=== PATIENT | male | born 1950 | race Caucasian/White ===

== ENCOUNTER 2023-01-11 08:44 | Outpatient (CLI) | payer MEDICARE, SELFPAY ==
[2023-01-11 07:50] LABS: Abs Immature Grans 0.04 10^3/uL (0.0-0.06); Absolute Basophil Count 0.07 10^3/uL (0.0-0.2); Absolute Eosinophil Count 0.44 10^3/uL (0.0-0.7); Absolute Lymphocyte Count 1.03 10^3/uL (1.2-3.4); Absolute Monocyte Count 0.63 10^3/uL (0.1-0.8); Absolute Neutrophil Count 6.34 10^3/uL (1.2-6.7); Basophils % 0.8; Eosinophils % 5.1; HCT 46.3 % (40.0-50.0); HGB 15.1 g/dL (13.5-17.5); Immature Grans % 0.5; MCH 30.1 pg (27.0-33.0); MCHC 32.6 % (32.0-36.0); MCV 92 fL (80-95); MPV 8.9 fL (8.0-11.0); Monocytes % 7.4; Neutrophils % 74.2; Platelet Count 235 10^3/uL (130-400); RBC 5.01 10^6/uL (4.36-5.78); RDW 13.4 % (11.8-14.1); RDW-SD 45.1 fL; WBC 8.55 10^3/uL (4.4-10.8)
[2023-01-11 08:13] LABS: ALT 40 U/L (16-63); AST 27 U/L (15-37); Albumin 4.1 g/dL (3.4-5.0); Alkaline Phosphatase 84 U/L (46-116); Anion Gap 7.6 mmol/L (3-11); BUN 19 mg/dL (7-18); Bilirubin, Total 0.4 mg/dL (0.2-1.0); CO2 30.4 mmol/L (21.0-32.0); CREATININE 1.2 mg/dL (0.70-1.30); Calcium 9.2 mg/dL (8.5-10.1); Chloride 105 mmol/L (98-107); Estimated GFR 65.06 (mL/min/1.73m2); FREE T4 1.02 ng/dL (0.76-1.46); Glucose 139 mg/dL (74-106); Magnesium 2.3 mg/dL (1.8-2.4); Potassium 4.1 mmol/L (3.5-5.1); Sodium 143 mmol/L (136-145); TSH 3.55 uIU/mL (0.36-3.74); Total Protein 8.2 g/dL (6.4-8.2)
== END 2023-01-11 08:45 | disposition home or self-care (01) ==
PROVIDERS: PCP Nurse Practitioner Family; Visit Provider Internal Medicine Medical Oncology
DX: Z79.899 Other long term (current) drug therapy (principal); J91.0 Malignant pleural effusion
CPT/HCPCS: 36415; 80053; 83735; 84439; 84443; 85025

== ENCOUNTER 2023-01-20 10:56 | Emergency (ER) | payer MEDICARE, SELFPAY ==
[2023-01-20] VITALS (20 sets, daily range): BP systolic 104–164; BP diastolic 59–75; PULSE 68–85; RESP 16–29; TEMP 37.2–37.3; O2SAT 94–99
--- NOTE | 2023-01-20 11:45 | RT.EKG_ITS ---
APPROVED REPORT Exam: Resting ECG Reason for Exam: ever reynakylie Patient Location: E HR:79 bpm ECG Measurements Heart Rate 79 AXIS AK 98 P 203 QRSd 104 QRS 69 QT 386 T 75 QTc 444 Conclusion Sinus or ectopic atrial rhythm...P axis (-45,135)
--- NOTE | 2023-01-20 12:00 | DI.RAD_ITS ---
Exam(s) XR PORTABLE CHEST AP EXAM: XR PORTABLE CHEST AP CLINICAL HISTORY: sob, chills TECHNIQUE: 2D digital imaging was performed of the chest. One image was obtained. An AP view was ob tained. COMPARISON: No exams were available for comparison FINDINGS: MEDIASTINUM: Normal. HEART: Normal. PULMONARY VASCULATURE: Normal. LUNGS: There is a 1.2 cm nodule in the right mid lung. There does appear to be some thickening along the wall of the right hemithorax and blunting of the right costophrenic angle suggesting a small ple ural effusion. No focal consolidating infiltrates are seen. There is some haziness in the right hem ithorax. The left lung appears clear. PLEURAL SPACE: No pneumothorax. No left pleural effusion. BONE:Within normal limits for the patient's age. Spinal curvature is present. OTHER FINDINGS:Normal. IMPRESSION: 1. Findings suspicious for small right pleural effusion. Increased haziness of the right lung and a infiltrate cannot be excluded. 2. 1.2 cm nodule in the right mid lung. CT scan of the chest should be considered in this patient fo r follow-up of the nodule. DATA REPOSITORY: RADIATION DOSE DELIVERED:
--- NOTE | 2023-01-20 12:17 | ED.GENADUL_ITS ---
Discharge Plan Disposition Patient Disposition: Home Condition: Stable Discharge Details Clinical Impression: Pneumonia, Lung cancer Primary Care Provider: Akila Grande ED Provider: Casper Vieyra Home Meds and New Rx's Prescriptions: New amoxicillin 875 mg tablet 875 mg PO BID Qty: 14 0RF Continued clonazepam 0.5 mg tablet 0.5 mg PO 2XD Patient Comments: 0.5 mg orally 3 times per day As Needed for anxiety for 30 days prochlorperazine maleate 10 mg tablet 10 mg PO 1XD pantoprazole 40 mg tablet,delayed release (DR/EC) 40 mg PO 1XD Patient Comments: TAKE ONE TABLET BY MOUTH ONCE DAILY levothyroxine 125 mcg tablet 125 mcg PO 1XD Patient Comments: TAKE ONE TABLET BY MOUTH ONCE DAILY diclofenac sodium 75 mg tablet,delayed release (DR/EC) 75 mg PO 2XD Patient Comments: TAKE ONE TABLET BY MOUTH TWICE A DAY NEEDED FOR PAIN lisinopril 40 mg tablet 40 mg PO 1XD tadalafil 5 mg tablet 5 mg PO 1XD Patient Comments: TAKE ONE TABLET BY MOUTH ONCE DAILY for sexual activity Discharge Instructions Instructions: Pneumonia (ED) Discharge Data Discharge Date/Time-TO BE ENTERED AT DEPARTURE: 01/20/23 18:04 Medical Decision Making 72-year-old male with history of stage IV lung adenocarcinoma, on chemotherapy, here with shortness of breath with associated chills over the past 3 days. Shortness of breath worse with exertion and when lying flat. Patient saturating in the upper 80s to low 90s on room air, drops with any exertion. EKG was reviewed and interpreted by me: Please see report, sinus 79 bpm. No STEMI, nondiagnostic. Consider ACS and CHF. I will send troponin and BNP. Chest x-ray was reviewed and interpreted by radiology: 1. Findings suspicious for small right pleural effusion.? Increased haziness of the right lung and a infiltrate cannot be excluded. 2. 1.2 cm nodule in the right mid lung.? CT scan of the chest should be considered in this patient for follow-up of the nodule.? Consider acute life-threatening pulmonary embolism. D-dimer elevated. Plan to obtain CT of the chest. -- CT of the chest was interpreted by radiology: 1. No evidence of pulmonary embolism, thoracic aortic dissection or aneurysm.? 2. There is a small infiltrate in the right lung base which may represent atelectasis or possible pneumonia. 3. There is diffuse pleural thickening in the right hemithorax suspicious for neoplasm or metastatic disease. Patient reassessed and stable. Patient requesting home O2 for symptomatic relief when laying flat. I consulted respiratory therapy who noted this could not be provided. I will refer him to follow-up with his primary care physician who hopefully can arrange for this. While no definitive pneumonia visualized on CT, I am concerned about potential early pneumonia not clearly visualized and superimposed on malignancy given his recent chills. I will initiate course of Augmentin 875 mg twice daily x7 days. I encouraged him to return to the emerge [place] immediately for any worsening or new concerning symptoms. Lab Data Lab results reviewed: Yes I reviewed the patient's lab results. Labs: 01/20/23 13:05 Blood Blood Culture - Pending 01/20/23 13:00 Blood Blood Culture - Pending Laboratory Tests Range/Units 01/20/23 01/20/23 01/20/23 12:12 12:12 12:12 WBC (4.4-10.8) 10^3/uL 6.95 RBC (4.36-5.78) 10^6/uL 4.55 Hgb (13.5-17.5) g/dL 14.4 Hct (40.0-50.0) % 41.1 MCV (80-95) fL 90 MCH (27.0-33.0) pg 31.6 MCHC (32.0-36.0) % 35.0 RDW (11.8-14.1) % 13.2 Plt Count (130-400) 10^3/uL 148 MPV (8.0-11.0) fL 9.4 Immature Gran % 1.3 Neutrophils % 71.6 Lymphocytes % 8.9 Monocytes % 14.8 Eosinophils % 2.7 Basophils % 0.7 Nucleated RBC % (0.0-0.3) % 0.0 Absolute Neutrophils (1.2-6.7) 10^3/uL 4.97 Absolute Lymphocytes (1.2-3.4) 10^3/uL 0.62 L Absolute Monocytes (0.1-0.8) 10^3/uL 1.03 H Absolute Eosinophils (0.0-0.7) 10^3/uL 0.19 Absolute Basophils (0.0-0.2) 10^3/uL 0.05 D-Dimer (<500) ng/mlFEU 2243 H VBG Lactate (0.6-1.4) mmol/L Sodium (136-145) mmol/L 134 L Potassium (3.5-5.1) mmol/L 4.0 Chloride (98-107) mmol/L 97 L Carbon Dioxide (21.0-32.0) mmol/L 27.5 Anion Gap (3-11) mmol/L 9.5 BUN (7-18) mg/dL 19 H Creatinine (0.70-1.30) mg/dL 1.3 Est GFR (CKD-EPI 2020) (mL/min/1.73m2) 59.10 Glucose (74-106) mg/dL 104 Calcium (8.5-10.1) mg/dL 8.7 Total Bilirubin (0.2-1.0) mg/dL 0.9 AST (15-37) U/L 23 ALT (16-63) U/L 42 Alkaline Phosphatase (46-116) U/L 69 Troponin I (<or=60) ng/L < 50 NT-Pro-B Natriuret Pep (<300) pg/mL 133 Total Protein (6.4-8.2) g/dL 7.7 Albumin (3.4-5.0) g/dL 3.6 COVID-19 Source Range/Units 01/20/23 01/20/23 12:12 14:16 WBC (4.4-10.8) 10^3/uL RBC (4.36-5.78) 10^6/uL Hgb (13.5-17.5) g/dL Hct (40.0-50.0) % MCV (80-95) fL MCH (27.0-33.0) pg MCHC (32.0-36.0) % RDW (11.8-14.1) % Plt Count (130-400) 10^3/uL MPV (8.0-11.0) fL Immature Gran % Neutrophils % Lymphocytes % Monocytes % Eosinophils % Basophils % Nucleated RBC % (0.0-0.3) % Absolute Neutrophils (1.2-6.7) 10^3/uL Absolute Lymphocytes (1.2-3.4) 10^3/uL Absolute Monocytes (0.1-0.8) 10^3/uL Absolute Eosinophils (0.0-0.7) 10^3/uL Absolute Basophils (0.0-0.2) 10^3/uL D-Dimer (<500) ng/mlFEU VBG Lactate (0.6-1.4) mmol/L 0.9 Sodium (136-145) mmol/L Potassium (3.5-5.1) mmol/L Chloride (98-107) mmol/L Carbon Dioxide (21.0-32.0) mmol/L Anion Gap (3-11) mmol/L BUN (7-18) mg/dL Creatinine (0.70-1.30) mg/dL Est GFR (CKD-EPI 2020) (mL/min/1.73m2) Glucose (74-106) mg/dL Calcium (8.5-10.1) mg/dL Total Bilirubin (0.2-1.0) mg/dL AST (15-37) U/L ALT (16-63) U/L Alkaline Phosphatase (46-116) U/L Troponin I (<or=60) ng/L NT-Pro-B Natriuret Pep (<300) pg/mL Total Protein (6.4-8.2) g/dL Albumin (3.4-5.0) g/dL COVID-19 Source Nasal/Nares HPI General Mode of arrival: ambulatory . Date/Time Provider Initiated Documentation: 01/20/23 11:30 . Limitations to Documentation: no limitations . Information obtained by: patient . HPI Narrative: 72-year-old male with history of stage IV lung adenocarcinoma, on chemotherapy, here with chief complaint of shortness of breath with associated chills over the past 3 days. Shortness of breath worse with exertion and when lying flat. He has no associated chest pain. Related Data Home Medications Medication Instructions Recorded Confirmed amoxicillin 875 mg tablet 875 mg PO BID #14 tabs 01/20/23 clonazepam 0.5 mg tablet 0.5 mg PO 2XD 01/20/23 01/20/23 diclofenac sodium 75 mg 75 mg PO 2XD 01/20/23 01/20/23 tablet,delayed release levothyroxine 125 mcg tablet 125 mcg PO 1XD 01/20/23 01/20/23 lisinopril 40 mg tablet 40 mg PO 1XD 01/20/23 01/20/23 pantoprazole 40 mg tablet,delayed 40 mg PO 1XD 01/20/23 01/20/23 release prochlorperazine maleate 10 mg 10 mg PO 1XD 01/20/23 01/20/23 tablet tadalafil 5 mg tablet 5 mg PO 1XD 01/20/23 01/20/23 Previous Rx's Medication Instructions Recorded amoxicillin 875 mg tablet 875 mg PO BID #14 tabs 01/20/23 Allergies Allergy/AdvReac Type Severity Reaction Status Date / Time codeine Allergy Other (See Unverified 01/20/23 11:24 Comment) morphine Allergy Other (See Unverified 01/20/23 11:23 Comment) ALL narcotics Allergy Other (See Uncoded 01/20/23 11:25 Comment) General Stated Complaint: SOB LILLIAM: 3 Review of Systems All systems reviewed & are unremarkable except as noted in HPI and below Constitutional Constitutional: Denies fever(s) Respiratory Respiratory: Reports as per HPI PFSH All Active Problems (Updated 01/20/23 @ 17:38 by Casper Vieyra MD) Pneumonia (Acute) Lung cancer (Chronic) Social History Smoking/Tobacco Use Status: Current-Occasional Tobacco Type: cigarettes Tobacco: How many years used: 15 Smoking risk assessment performed?: Yes Alcohol Intake: never Do you feel safe at home: Yes Do you feel safe in your relationship?: Yes Exam Const General: cooperative and no acute distress HENMT Mouth: moist mucous membranes Eyes Conjunctivae: normal conjunctivae Sclera: normal sclerae Neck Neck: trachea midline Resp Auscultation: clear to auscultation bilaterally, no rales, no rhonchi and no wheezes Cardio Rate: regular rate and not tachycardic Rhythm: regular rhythm GI Palpation: soft, not firm, no guarding, no masses, not rigid and nontender Skin General skin exam: no rashes or lesions noted Neuro General: patient alert, patient awake, patient oriented x3 and tone normal Extrem General: no calf tenderness and no edema Psych Appearance: grossly normal Mental Status: mental status grossly normal Course Vital Signs Vital signs: Vital Signs Temperature 37.3 C 01/20/23 11:17 Pulse 82 01/20/23 11:17 Respiratory Rate 16 01/20/23 11:17 Blood Pressure 132/72 01/20/23 11:17 Pulse Oximetry 94 01/20/23 11:17 Temperature 37.3 C 01/20/23 11:17 Temperature Source Oral 01/20/23 11:17 Pulse 82 01/20/23 11:17 Respiratory Rate 20 01/20/23 11:50 Respiratory Effort Normal 01/20/23 11:50 Respiratory Depth Normal 01/20/23 11:50 Respiratory Pattern Normal 01/20/23 11:50 Blood Pressure 132/72 01/20/23 11:17 Blood Pressure Position Sitting 01/20/23 11:17 Pulse Oximetry 94 01/20/23 11:17 Oxygen Delivery Method Room Air 01/20/23 11:17 Oxygen Flow Rate 0 01/20/23 11:17 Pain Level 4 01/20/23 11:17 Lab/Test Results Lab/Test Results: 01/20/23 12:16 Blood Blood Culture - Pending 01/20/23 12:16 Blood Blood Culture - Pending
[2023-01-20 12:21] LABS: Lactate 0.9 mmol/L (0.6-1.4)
[2023-01-20 12:27] LABS: Abs Immature Grans 0.09 10^3/uL (0.0-0.06); Absolute Basophil Count 0.05 10^3/uL (0.0-0.2); Absolute Eosinophil Count 0.19 10^3/uL (0.0-0.7); Absolute Lymphocyte Count 0.62 10^3/uL (1.2-3.4); Absolute Monocyte Count 1.03 10^3/uL (0.1-0.8); Absolute Neutrophil Count 4.97 10^3/uL (1.2-6.7); Basophils % 0.7; Eosinophils % 2.7; HCT 41.1 % (40.0-50.0); HGB 14.4 g/dL (13.5-17.5); Immature Grans % 1.3; Lymphocytes % 8.9; MCH 31.6 pg (27.0-33.0); MCV 90 fL (80-95); MPV 9.4 fL (8.0-11.0); Monocytes % 14.8; Neutrophils % 71.6; Platelet Count 148 10^3/uL (130-400); RBC 4.55 10^6/uL (4.36-5.78); RDW 13.2 % (11.8-14.1); RDW-SD 43.7 fL; WBC 6.95 10^3/uL (4.4-10.8)
[2023-01-20 12:47] LABS: ALT 42 U/L (16-63); AST 23 U/L (15-37); Albumin 3.6 g/dL (3.4-5.0); Alkaline Phosphatase 69 U/L (46-116); Anion Gap 9.5 mmol/L (3-11); BUN 19 mg/dL (7-18); Bilirubin, Total 0.9 mg/dL (0.2-1.0); CO2 27.5 mmol/L (21.0-32.0); CREATININE 1.3 mg/dL (0.70-1.30); Calcium 8.7 mg/dL (8.5-10.1); Chloride 97 mmol/L (98-107); Glucose 104 mg/dL (74-106); NT-proBNP 133 pg/mL (<300); Sodium 134 mmol/L (136-145); Total Protein 7.7 g/dL (6.4-8.2); Troponin I < 50 ng/L (<or=60)
[2023-01-20 12:50] LABS: D-Dimer 2243 ng/mlFEU (<500)
[2023-01-20 14:20] LABS: Source Nasal/Nares
[2023-01-20 14:51] LABS: COVID-19 PCR Negative (Negative)
--- NOTE | 2023-01-20 15:10 | DI.CT_ITS ---
Exam(s) CT CHEST PE CTA EXAM: CT CHEST PE CTA CLINICAL HISTORY: cough, shortness of breath, lung cancer. TECHNIQUE: Imaging Protocol: Axial CT angiography was performed with multi-slice acquisition and mu lti-planar and/or 3D reconstructions. CONTRAST MATERIAL: Intravenous: Omnipaque 350 contrast volume:90 mL COMPARISON: CR XR PORTABLE CHEST AP from 01/20/2023 FINDINGS: The examination is limited due to patient motion artifact. Tracheobronchial tree: Patent where visualized. Pulmonary parenchyma: The left lung is clear. There are small nodular areas along the pleural surfac es in the right hemithorax. No architectural distortion. Pulmonary Arteries: No evidence of filling defect to suggest pulmonary emboli. Mediastinum and Cora: No dominant adenopathy or fluid collection. The esophagus is unremarkable. Visualized thyroid gland: Unremarkable. Pleura: There is diffuse pleural thickening in the right hemithorax. There is also nodular thickenin g along the pleural fissural surfaces. Heart: The heart is not dilated. Coronary artery calcifications are present. No pericardial effusion . Aorta: Thoracic aorta non-dilated. No evidence of dissection. Atherosclerosis. Upper abdomen: Unremarkable. Soft tissues: Mild gynecomastia. Bones: Within normal limits for the patient's age.There is a reverse S-type scoliosis. IMPRESSION: 1. No evidence of pulmonary embolism, thoracic aortic dissection or aneurysm. 2. There is a small infiltrate in the right lung base which may represent atelectasis or possible pne umonia. 3. There is diffuse pleural thickening in the right hemithorax suspicious for neoplasm or metastatic disease. 4. Findings were discussed with Dr. Vieyra at 4:05 p.m. on 01/20/2023. RADIATION DOSE DELIVERED: 661.69mGy.cm Total DLP DATA REPOSITORY: All CT scans at this facility are submitted to the National Radiology Data Registry (NRDR) Dose Index Registry (DIR) with the [employer] (ACR). RADIATION OPTIMIZATION: All CT scans at this facility use at least one of these dose optimization te chniques: automated exposure control; mA and/or kV adjustment per patient size (includes targeted exa ms where dose is matched to clinical indication); or iterative reconstruction.
[2023-01-20] MEDS: LORazepam 2 MG/ML VIAL 1 MG IVP (15:13)
[2023-01-20] MEDS: Omnipaque 350 MG/ML 100 ML BTL IJ (15:32)
[2023-01-20] MEDS: Normal Saline - Diluent 50 ML VIAL IJ (15:33)
[2023-01-20 16:05] LABS: Troponin I < 50 ng/L (<or=60)
[2023-01-20] MEDS: Amoxicillin 875/Clav. 125 TAB PO (17:51)
--- NOTE | 2023-01-20 17:59 | NUR.NOTE ---
Nursing Note: PT needs PCP follow up early next week for pneumonia & needing home 02. Eli, ED
--- NOTE | 2023-01-22 13:48 | CMPROGNOTE_ITS ---
- If Service Date Differs Date of service: 01/22/23 Time of Service: 13:48 Care Management Progress Note CM consult from ED for PCP follow up. 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 CM called Ady who advised he was feeling better today. He also stated his new PCP is Dr. Che at the [facility]. SANCHEZ unable to find fax number for Primary Care office; called [facility] vertical roll operator who advised F#[phone]. CM faxed clinicals and follow up appointment request.
== END 2023-01-20 18:04 | disposition home or self-care (01) ==
PROVIDERS: Emergency Provider Student in an Organized Health Care Education/Training Program; PCP Nurse Practitioner Family
DX: J18.9 Pneumonia, unspecified organism (principal); C34.90 Malignant neoplasm of unspecified part of unspecified bronchus or lung; R79.1 Abnormal coagulation profile; F17.210 Nicotine dependence, cigarettes, uncomplicated; Z92.21 Personal history of antineoplastic chemotherapy; Z20.822 Contact with and (suspected) exposure to COVID-19; R06.02 Shortness of breath
CPT/HCPCS: 36410; 71275; 80053; 87040; 87635; 93005; 96374; 99285; 71045; 83605; 83880; 84484; 85025; 85379; 93010; J2060; J3490

== ENCOUNTER 2023-02-06 02:33 | Outpatient (CLI) | payer MEDICARE, SELFPAY ==
[2023-02-06 07:33] LABS: Abs Immature Grans 1.25 10^3/uL (0.0-0.06); Absolute Basophil Count 0.24 10^3/uL (0.0-0.2); Absolute Eosinophil Count 0.44 10^3/uL (0.0-0.7); Absolute Lymphocyte Count 1.66 10^3/uL (1.2-3.4); Absolute Monocyte Count 0.89 10^3/uL (0.1-0.8); Absolute Neutrophil Count 9.82 10^3/uL (1.2-6.7); Basophils % 1.7; Eosinophils % 3.1; HCT 38.3 % (40.0-50.0); HGB 12.6 g/dL (13.5-17.5); Immature Grans % 8.7; Lymphocytes % 11.6; MCH 30.4 pg (27.0-33.0); MCHC 32.9 % (32.0-36.0); MCV 93 fL (80-95); MPV 7.8 fL (8.0-11.0); Monocytes % 6.2; Neutrophils % 68.7; Platelet Count 280 10^3/uL (130-400); RBC 4.14 10^6/uL (4.36-5.78); RDW 14.3 % (11.8-14.1); RDW-SD 46.5 fL
[2023-02-06 07:51] LABS: Diff Comment Diff Reviewed; RBC Morphology Normal
[2023-02-06 07:57] LABS: ALT 50 U/L (16-63); AST 33 U/L (15-37); Albumin 3.2 g/dL (3.4-5.0); Alkaline Phosphatase 90 U/L (46-116); Anion Gap 5.1 mmol/L (3-11); BUN 22 mg/dL (7-18); Bilirubin, Total 0.3 mg/dL (0.2-1.0); CO2 30.9 mmol/L (21.0-32.0); CREATININE 1.2 mg/dL (0.70-1.30); Chloride 101 mmol/L (98-107); Estimated GFR 65.06 (mL/min/1.73m2); FREE T4 0.94 ng/dL (0.76-1.46); Glucose 142 mg/dL (74-106); Magnesium 2.1 mg/dL (1.8-2.4); Potassium 4.1 mmol/L (3.5-5.1); Sodium 137 mmol/L (136-145); TSH 5.81 uIU/mL (0.36-3.74); Total Protein 7.7 g/dL (6.4-8.2)
== END 2023-02-06 02:34 | disposition home or self-care (01) ==
LOC: LBO 02:33
PROVIDERS: PCP Nurse Practitioner Family; Visit Provider Internal Medicine Medical Oncology
DX: J91.0 Malignant pleural effusion (principal); Z79.899 Other long term (current) drug therapy
CPT/HCPCS: 36415; 80053; 83735; 84439; 84443; 85025

== ENCOUNTER 2023-02-22 01:03 | Outpatient (CLI) | payer MEDICARE, SELFPAY ==
--- NOTE | 2023-02-22 | DI.CT_ITS ---
Exam(s) CT CHEST W EXAM: CT CHEST W CLINICAL HISTORY: RT LUNG CA,C34.91,ON IMMUNO CHEMO,RESTAGING SCAN. TECHNIQUE: Multi planar reconstructions were performed. CONTRAST MATERIAL: Omnipaque 350; 75 cc COMPARISON: CT CT CHEST PE CTA from 01/20/2023 FINDINGS: CHEST: LUNGS: Left lung is clear. The amount of circumferential pleural thickening in the right hemithorax has significantly decreased as have multiple nodular infiltrates in the right lung. No pleural effus ions. MEDIASTINUM: There is no hilar nor mediastinal adenopathy. Visualized thyroid unremarkable. CARDIAC: Heart size upper normal. No pericardial effusion. Caliber thoracic aorta is within normal limits.Caliber of the thoracic aorta is within normal limits. VISUALIZED UPPER ABDOMEN:Well-defined hypo density in the left hepatic lobe measures 2.7 x 1.7 cm, un changed from 01/20/2023. Difficult to assess given respiratory motion artifact but may represent a b enign cyst. No other focal hepatic findings evident. Spleen size normal. No significant adrenal ma sses. OSSEOUS: No significant osseous lesions.No fractures. IMPRESSION: 1. Although there is degradation by respiratory motion artifact, there does appear to be significant improvement in the appearance of the right hemithorax when compared to the prior CT scan of 3. There has been significant interval decrease in amount of circumferential pleural thickening and nodular densities in the right hemithorax. Left lung is clear. There are no pleural effusions. 2. 0.7 x 1.7 cm hypodensity in left hepatic lobe is probably an incidental cyst, unchanged. This can be further studied with ultrasound for verification, particularly given the amount of respiratory mo tion artifact on the CT study. 3. No lytic osseous lesions evident RADIATION DOSE DELIVERED: 935.3mGy.cm Total DLP DATA REPOSITORY: All CT scans at this facility are submitted to the National Radiology Data Registry (NRDR) Dose Index Registry (DIR) with the [employer] (ACR). RADIATION OPTIMIZATION: All CT scans at this facility use at least one of these dose optimization te chniques: automated exposure control; mA and/or kV adjustment per patient size (includes targeted exa ms where dose is matched to clinical indication); or iterative reconstruction.
== END 2023-02-22 01:23 ==
PROVIDERS: PCP Nurse Practitioner Family; Visit Provider Internal Medicine Medical Oncology
DX: C34.91 Malignant neoplasm of unspecified part of right bronchus or lung (principal); Z92.21 Personal history of antineoplastic chemotherapy; K76.89 Other specified diseases of liver; J98.4 Other disorders of lung
CPT/HCPCS: 71260

== ENCOUNTER 2023-02-27 02:24 | Outpatient (CLI) | payer MEDICARE, SELFPAY ==
[2023-02-27 10:07] LABS: Abs Immature Grans 0.08 10^3/uL (0.0-0.06); Absolute Basophil Count 0.05 10^3/uL (0.0-0.2); Absolute Eosinophil Count 0.15 10^3/uL (0.0-0.7); Absolute Monocyte Count 0.67 10^3/uL (0.1-0.8); Absolute Neutrophil Count 3.67 10^3/uL (1.2-6.7); Basophils % 0.9; Eosinophils % 2.6; HCT 37.2 % (40.0-50.0); HGB 12.6 g/dL (13.5-17.5); Immature Grans % 1.4; Lymphocytes % 20.6; MCH 31.4 pg (27.0-33.0); MCHC 33.9 % (32.0-36.0); MCV 93 fL (80-95); MPV 8.1 fL (8.0-11.0); Monocytes % 11.5; Platelet Count 353 10^3/uL (130-400); RBC 4.01 10^6/uL (4.36-5.78); RDW 16.2 % (11.8-14.1); RDW-SD 53.1 fL; WBC 5.82 10^3/uL (4.4-10.8)
[2023-02-27 10:37] LABS: ALT 46 U/L (16-63); AST 27 U/L (15-37); Albumin 3.7 g/dL (3.4-5.0); Alkaline Phosphatase 84 U/L (46-116); Anion Gap 7.6 mmol/L (3-11); BUN 18 mg/dL (7-18); Bilirubin, Total 0.3 mg/dL (0.2-1.0); CO2 31.4 mmol/L (21.0-32.0); CREATININE 1.7 mg/dL (0.70-1.30); Calcium 9.3 mg/dL (8.5-10.1); Chloride 102 mmol/L (98-107); Estimated GFR 42.83 (mL/min/1.73m2); FREE T4 1.01 ng/dL (0.76-1.46); Glucose 131 mg/dL (74-106); Magnesium 2.2 mg/dL (1.8-2.4); Potassium 3.9 mmol/L (3.5-5.1); Sodium 141 mmol/L (136-145); TSH 3.28 uIU/mL (0.36-3.74); Total Protein 8.3 g/dL (6.4-8.2)
== END 2023-02-27 02:25 | disposition home or self-care (01) ==
LOC: LBO 02:24
PROVIDERS: PCP Nurse Practitioner Family; Visit Provider Internal Medicine Medical Oncology
DX: J91.0 Malignant pleural effusion (principal); Z79.899 Other long term (current) drug therapy
CPT/HCPCS: 36415; 80053; 83735; 84439; 84443; 85025

== ENCOUNTER 2023-03-20 03:10 | Outpatient (CLI) | payer MEDICARE, SELFPAY ==
[2023-03-20 10:33] LABS: Abs Immature Grans 0.12 10^3/uL (0.0-0.06); Absolute Basophil Count 0.03 10^3/uL (0.0-0.2); Absolute Eosinophil Count 0.17 10^3/uL (0.0-0.7); Absolute Lymphocyte Count 1.37 10^3/uL (1.2-3.4); Absolute Monocyte Count 0.79 10^3/uL (0.1-0.8); Basophils % 0.6; Eosinophils % 3.5; HCT 33.5 % (40.0-50.0); HGB 11.4 g/dL (13.5-17.5); Immature Grans % 2.5; Lymphocytes % 28.1; MCH 31.9 pg (27.0-33.0); MCV 94 fL (80-95); Monocytes % 16.2; Neutrophils % 49.1; Platelet Count 374 10^3/uL (130-400); RBC 3.57 10^6/uL (4.36-5.78); RDW 17.9 % (11.8-14.1); RDW-SD 57.5 fL; WBC 4.88 10^3/uL (4.4-10.8)
[2023-03-20 10:56] LABS: ALT 44 U/L (16-63); AST 32 U/L (15-37); Albumin 3.9 g/dL (3.4-5.0); Alkaline Phosphatase 83 U/L (46-116); BUN 18 mg/dL (7-18); Bilirubin, Total 0.2 mg/dL (0.2-1.0); CREATININE 1.7 mg/dL (0.70-1.30); Calcium 9.5 mg/dL (8.5-10.1); Chloride 99 mmol/L (98-107); Estimated GFR 42.83 (mL/min/1.73m2); FREE T4 0.91 ng/dL (0.76-1.46); Glucose 127 mg/dL (74-106); Potassium 3.5 mmol/L (3.5-5.1); Sodium 137 mmol/L (136-145); TSH 3.64 uIU/mL (0.36-3.74); Total Protein 8.5 g/dL (6.4-8.2)
== END 2023-03-20 03:11 | disposition home or self-care (01) ==
LOC: LBO 03:10
PROVIDERS: PCP Nurse Practitioner Family; Visit Provider Internal Medicine Medical Oncology
DX: J91.0 Malignant pleural effusion (principal); Z79.899 Other long term (current) drug therapy; C34.91 Malignant neoplasm of unspecified part of right bronchus or lung
CPT/HCPCS: 36415; 80053; 83735; 84439; 84443; 85025

== ENCOUNTER 2023-03-28 01:10 | Outpatient (CLI) | payer MEDICARE, SELFPAY ==
--- NOTE | 2023-03-28 | DI.CT_ITS ---
Exam(s) CT CHEST/ABD/PEL W EXAM: CT CHEST/ABD/PEL W CLINICAL HISTORY: RT LUNG CANCER C34.91 RESTAGING TECHNIQUE: Imaging Protocol: Axial computed tomography images with coronal and sagittal reformatted images were created and reviewed CONTRAST MATERIAL: Intravenous: Omnipaque 350 contrast volume:100 mL Oral: Yes COMPARISON: CT CT CHEST PE CTA from 01/20/[address] CHEST W from 02/22/2023 FINDINGS: The examination is limited due to patient motion artifact. CHEST: Tracheobronchial tree: Patent where visualized. Pulmonary parenchyma: There are stable calcified granuloma in the lungs. The degree of pleural thick ening in the right lung continues to decrease. No new pulmonary nodules are seen. No architectural distortion. Visualized thyroid gland: Unremarkable. Mediastinum and Cora: No dominant adenopathy or fluid collection. The esophagus is unremarkable. The re is a small hiatal hernia. Pleura: No pneumothorax. The left pleural appears unremarkable. Heart: The heart is not dilated. No coronary artery calcifications are seen. No pericardial effusion. Pulmonary arteries: No pulmonary emboli are identified. Aorta: Thoracic aorta non-dilated. Mild atherosclerosis. Lymph nodes: Within normal limits. Soft tissues: Unremarkable. Bones:There is a right convex scoliosis of the thoracic spine. Age-appropriate degenerative changes are seen in the spine. ABDOMEN: Liver: Normal density. There is a homogeneously hypodense lesion in the left lobe of the liver measur ing 2.4 x 1.6 cm consistent with a cyst. No suspicious hepatic left masses are seen. Portal, Superior Mesenteric, and Splenic Veins: Unremarkable. Gallbladder and Biliary Tract: No radiodense calculus or dilation. Pancreas: Normal density, no abnormal calcifications or inflammatory process. Spleen: Normal. Adrenals: There is a 1.6 x 1.1 cm left adrenal nodule. The right adrenal gland is unremarkable. Kidneys: Normal size, contour and axis. No radiodense stones or obstructive uropathy. There is a 0.8 cm hypodensity in the anterior aspect of the midpole of the left kidney. It is too small for further characterization. No follow-up is recommended at this time. Abdominal Aorta: Abdominal portion non-dilated. Atherosclerosis is present. Bowel: No obstruction or bowel wall thickening. Appendix is unremarkable. Peritoneal Cavity: No ascites, collection or mesenteric inflammatory response. No free air. Lymph Nodes: Within normal limits. Bones: Within normal limits for the patient's age. There are postsurgical changes seen at the lumbos acral junction. Soft Tissues: Unremarkable. There is fatty atrophy of the left gluteal muscles. PELVIS: Bladder: Symmetric distention, no gross wall thickening. Reproductive Organs: Enlarged prostate gland. Lymph Nodes: Within normal limits. Bones: Within normal limits. IMPRESSION: 1. Continued improvement in the appearance of the right hemithorax with continuing decrease in size o f the pleural thickening. 2. 1.6 x 1.[address] cm left adrenal nodule. CT or MRI of the left adrenal gland may be obtained for further evaluation. 3. Left hepatic cyst. 4. Calcified pulmonary granulomas. RADIATION DOSE DELIVERED: 2,523.42mGy.cm Total DLP DATA REPOSITORY: All CT scans at this facility are submitted to the National Radiology Data Registry (NRDR) Dose Index Registry (DIR) with the [employer] (ACR). RADIATION OPTIMIZATION: All CT scans at this facility use at least one of these dose optimization te chniques: automated exposure control; mA and/or kV adjustment per patient size (includes targeted exa ms where dose is matched to clinical indication); or iterative reconstruction.
[2023-03-28] MEDS: Barium Sulfate 2% W/V-Berry Smoothie 450 ML BTL 900 ML PO (07:55)
[2023-03-28] MEDS: Normal Saline - Diluent 50 ML VIAL IJ (09:40)
[2023-03-28] MEDS: Omnipaque 350 MG/ML 500 ML BTL-Imaging package IJ (09:40)
== END 2023-03-28 01:30 ==
LOC: DI 01:10
PROVIDERS: PCP Nurse Practitioner Family; Visit Provider Internal Medicine Medical Oncology
DX: Q44.6 Cystic disease of liver (principal); L92.0 Granuloma annulare; E27.9 Disorder of adrenal gland, unspecified; C34.90 Malignant neoplasm of unspecified part of unspecified bronchus or lung
CPT/HCPCS: 74177; 71260

== ENCOUNTER 2023-04-17 03:39 | Outpatient (CLI) | payer MEDICARE, SELFPAY ==
[2023-04-17 07:41] LABS: Abs Immature Grans 0.05 10^3/uL (0.0-0.06); Absolute Basophil Count 0.08 10^3/uL (0.0-0.2); Absolute Lymphocyte Count 1.21 10^3/uL (1.2-3.4); Absolute Monocyte Count 0.64 10^3/uL (0.1-0.8); Absolute Neutrophil Count 5.11 10^3/uL (1.2-6.7); Basophils % 1.1; Eosinophils % 2.7; HCT 39.2 % (40.0-50.0); HGB 13.5 g/dL (13.5-17.5); Immature Grans % 0.7; Lymphocytes % 16.6; MCH 33.8 pg (27.0-33.0); MCHC 34.4 % (32.0-36.0); MCV 98 fL (80-95); MPV 8.4 fL (8.0-11.0); Monocytes % 8.8; Neutrophils % 70.1; Platelet Count 189 10^3/uL (130-400); RBC 3.99 10^6/uL (4.36-5.78); RDW 16.6 % (11.8-14.1); RDW-SD 60.9 fL; WBC 7.29 10^3/uL (4.4-10.8)
[2023-04-17 08:09] LABS: ALT 30 U/L (16-63); AST 32 U/L (15-37); Albumin 4.1 g/dL (3.4-5.0); Alkaline Phosphatase 74 U/L (46-116); BUN 21 mg/dL (7-18); Bilirubin, Total 0.4 mg/dL (0.2-1.0); CREATININE 1.8 mg/dL (0.70-1.30); Calcium 9.5 mg/dL (8.5-10.1); Chloride 100 mmol/L (98-107); Estimated GFR 39.99 (mL/min/1.73m2); FREE T4 1.04 ng/dL (0.76-1.46); Glucose 137 mg/dL (74-106); Magnesium 2.2 mg/dL (1.8-2.4); Potassium 3.6 mmol/L (3.5-5.1); Sodium 138 mmol/L (136-145); TSH 3.37 uIU/mL (0.36-3.74); Total Protein 8.2 g/dL (6.4-8.2)
== END 2023-04-17 03:40 | disposition home or self-care (01) ==
LOC: LBO 03:39
PROVIDERS: PCP Nurse Practitioner Family; Visit Provider Internal Medicine Medical Oncology
DX: J91.0 Malignant pleural effusion (principal); Z79.899 Other long term (current) drug therapy
CPT/HCPCS: 36415; 80053; 83735; 84439; 84443; 85025

== ENCOUNTER 2023-05-08 03:14 | Outpatient (CLI) | payer MEDICARE, SELFPAY ==
[2023-05-08 10:11] LABS: Abs Immature Grans 0.02 10^3/uL (0.0-0.06); Absolute Basophil Count 0.05 10^3/uL (0.0-0.2); Absolute Eosinophil Count 0.14 10^3/uL (0.0-0.7); Absolute Lymphocyte Count 1.25 10^3/uL (1.2-3.4); Basophils % 0.7; HCT 39.5 % (40.0-50.0); HGB 13.5 g/dL (13.5-17.5); Immature Grans % 0.3; Lymphocytes % 17.5; MCH 33.9 pg (27.0-33.0); MCHC 34.2 % (32.0-36.0); MCV 99 fL (80-95); MPV 8.4 fL (8.0-11.0); Monocytes % 8.4; Neutrophils % 71.1; Platelet Count 191 10^3/uL (130-400); RBC 3.98 10^6/uL (4.36-5.78); RDW 13.6 % (11.8-14.1); RDW-SD 50.7 fL; WBC 7.16 10^3/uL (4.4-10.8)
[2023-05-08 10:35] LABS: ALT 27 U/L (16-63); AST 29 U/L (15-37); Albumin 4.2 g/dL (3.4-5.0); Alkaline Phosphatase 71 U/L (46-116); Anion Gap 9.7 mmol/L (3-11); BUN 23 mg/dL (7-18); Bilirubin, Total 0.4 mg/dL (0.2-1.0); CO2 27.3 mmol/L (21.0-32.0); CREATININE 1.6 mg/dL (0.70-1.30); Calcium 9.5 mg/dL (8.5-10.1); Chloride 102 mmol/L (98-107); Estimated GFR 46.06 (mL/min/1.73m2); FREE T4 0.98 ng/dL (0.76-1.46); Glucose 126 mg/dL (74-106); Magnesium 2.2 mg/dL (1.8-2.4); Potassium 3.9 mmol/L (3.5-5.1); Sodium 139 mmol/L (136-145); TSH 1.47 uIU/mL (0.36-3.74); Total Protein 8.3 g/dL (6.4-8.2)
== END 2023-05-08 03:15 | disposition home or self-care (01) ==
LOC: LBO 03:14
PROVIDERS: PCP Nurse Practitioner Family; Visit Provider Internal Medicine Medical Oncology
DX: J91.0 Malignant pleural effusion (principal); Z79.899 Other long term (current) drug therapy
CPT/HCPCS: 36415; 80053; 83735; 84439; 84443; 85025

== ENCOUNTER 2023-05-29 04:25 | Outpatient (CLI) | payer MEDICARE, SELFPAY ==
[2023-05-29 08:01] LABS: Abs Immature Grans 0.02 10^3/uL (0.0-0.06); Absolute Basophil Count 0.04 10^3/uL (0.0-0.2); Absolute Eosinophil Count 0.14 10^3/uL (0.0-0.7); Absolute Lymphocyte Count 1.27 10^3/uL (1.2-3.4); Absolute Monocyte Count 0.42 10^3/uL (0.1-0.8); Absolute Neutrophil Count 3.95 10^3/uL (1.2-6.7); Basophils % 0.7; Eosinophils % 2.4; Immature Grans % 0.3; Lymphocytes % 21.7; MCH 33.9 pg (27.0-33.0); MCHC 34.1 % (32.0-36.0); MCV 99 fL (80-95); MPV 8.7 fL (8.0-11.0); Monocytes % 7.2; Neutrophils % 67.7; Platelet Count 158 10^3/uL (130-400); RBC 4.43 10^6/uL (4.36-5.78); RDW 11.9 % (11.8-14.1); RDW-SD 44.2 fL; WBC 5.84 10^3/uL (4.4-10.8)
[2023-05-29 08:30] LABS: ALT 22 U/L (16-63); AST 26 U/L (15-37); Albumin 4.1 g/dL (3.4-5.0); Alkaline Phosphatase 75 U/L (46-116); Anion Gap 7.1 mmol/L (3-11); BUN 24 mg/dL (7-18); Bilirubin, Total 0.4 mg/dL (0.2-1.0); CO2 29.9 mmol/L (21.0-32.0); CREATININE 1.8 mg/dL (0.70-1.30); Calcium 9.1 mg/dL (8.5-10.1); Chloride 103 mmol/L (98-107); Estimated GFR 39.99 (mL/min/1.73m2); FREE T4 0.92 ng/dL (0.76-1.46); Glucose 130 mg/dL (74-106); Magnesium 2.1 mg/dL (1.8-2.4); Potassium 3.6 mmol/L (3.5-5.1); Sodium 140 mmol/L (136-145); TSH 2.62 uIU/mL (0.36-3.74); Total Protein 8.1 g/dL (6.4-8.2)
== END 2023-05-29 04:26 | disposition home or self-care (01) ==
LOC: LBO 04:25
PROVIDERS: PCP Nurse Practitioner Family; Visit Provider Internal Medicine Medical Oncology
DX: Z79.899 Other long term (current) drug therapy (principal); J91.0 Malignant pleural effusion
CPT/HCPCS: 36415; 80053; 83735; 84439; 84443; 85025

== ENCOUNTER 2023-06-13 01:06 | Outpatient (CLI) | payer MEDICARE, SELFPAY ==
--- NOTE | 2023-06-13 09:30 | DI.CT_ITS ---
Exam(s) CT CHEST/ABD/PEL W EXAM: CT CHEST/ABD/PEL W CLINICAL HISTORY: NON SMALL CELL CANCER RT LUNG, C34.91. TECHNIQUE: Imaging Protocol: Axial computed tomography images with coronal and sagittal reformatted images were created and reviewed CONTRAST MATERIAL: Intravenous: Omnipaque 350 Contrast volume:100 ml Oral: yes / no COMPARISON: CT CT CHEST PE CTA from 01/20/[address] CHEST/ABD/PEL W from 03/28/2023 FINDINGS: CHEST: Tracheobronchial tree: Patent where visualized. Pulmonary parenchyma: No consolidation or dominant measurable mass. Pleura: No effusion or pneumothorax. Mild posterior pleural thickening is noted in the right upper lobe posteriorly and medial aspect of the right lower lobe. Mild nodularity is again noted along the fissures. No new new nodules or evidence of infiltrate. Lymph nodes: Within normal limits. Aorta: Thoracic portion non-dilated. Heart: Not dilated. Mild coronary artery calcifications Bones: Scoliosis and degenerative changes. No lytic or blastic lesions.No compression fractures. ABDOMEN: Liver: Normal density. Liver cysts again noted no suspicious mass. Gallbladder and biliary tract: No radiodense calculus or dilation. Pancreas: Normal density, no abnormal calcifications or inflammatory process. Spleen: Normal. Kidneys: Normal size, contour and axis. No radiodense stones or obstructive uropathy. No suspicious m asses seen. Adrenal glands: Stable small left adrenal nodule. Aorta: Abdominal portion non-dilated. Lymph nodes: Within normal limits. Soft tissues: Unremarkable. PELVIS: Bladder: Symmetric distention, no gross wall thickening. Bowel: No obstruction or bowel wall thickening. Appendix normal. Peritoneal cavity: No ascites, collection or mesenteric inflammatory response. Bones: Postsurgical changes above sacral junction.. Scoliosis and degenerative changes. Reproductive organs: Enlarged prostate IMPRESSION: Stable appearance right pleural thickening and mild nodularity. No new abnormalities in the chest. Stable small left adrenal nodule. No new findings in the abdomen or pelvis. RADIATION DOSE DELIVERED: 2,195.5mGy.cm Total DLP DATA REPOSITORY: All CT scans at this facility are submitted to the National Radiology Data Registry (NRDR) Dose Index Registry (DIR) with the [employer] (ACR). RADIATION OPTIMIZATION: All CT scans at this facility use at least one of these dose optimization te chniques: automated exposure control; mA and/or kV adjustment per patient size (includes targeted exa ms where dose is matched to clinical indication); or iterative reconstruction.
[2023-06-13 09:47] LABS: Abs Immature Grans 0.01 10^3/uL (0.0-0.06); Absolute Basophil Count 0.05 10^3/uL (0.0-0.2); Absolute Eosinophil Count 0.11 10^3/uL (0.0-0.7); Absolute Monocyte Count 0.46 10^3/uL (0.1-0.8); Absolute Neutrophil Count 4.31 10^3/uL (1.2-6.7); Basophils % 0.8; Eosinophils % 1.8; HGB 14.7 g/dL (13.5-17.5); Immature Grans % 0.2; Lymphocytes % 18.2; MCH 33.3 pg (27.0-33.0); MCHC 33.4 % (32.0-36.0); MCV 100 fL (80-95); MPV 8.9 fL (8.0-11.0); Monocytes % 7.6; Neutrophils % 71.4; Platelet Count 163 10^3/uL (130-400); RBC 4.42 10^6/uL (4.36-5.78); RDW 11.9 % (11.8-14.1); RDW-SD 43.7 fL; WBC 6.04 10^3/uL (4.4-10.8)
[2023-06-13 10:14] LABS: ALT 28 U/L (16-63); AST 35 U/L (15-37); Albumin 4.1 g/dL (3.4-5.0); Alkaline Phosphatase 71 U/L (46-116); Anion Gap 6.5 mmol/L (3-11); BUN 19 mg/dL (7-18); Bilirubin, Total 0.4 mg/dL (0.2-1.0); CO2 30.5 mmol/L (21.0-32.0); CREATININE 1.6 mg/dL (0.70-1.30); Calcium 9.3 mg/dL (8.5-10.1); Chloride 101 mmol/L (98-107); Estimated GFR 46.06 (mL/min/1.73m2); FREE T4 1.17 ng/dL (0.76-1.46); Glucose 112 mg/dL (74-106); Magnesium 2.3 mg/dL (1.8-2.4); Potassium 4.6 mmol/L (3.5-5.1); Sodium 138 mmol/L (136-145); TSH 1.07 uIU/mL (0.36-3.74); Total Protein 8.2 g/dL (6.4-8.2)
[2023-06-13] MEDS: Barium Sulfate 2% W/V-Berry Smoothie 450 ML BTL PO (10:28)
[2023-06-13] MEDS: Omnipaque 350 MG/ML 500 ML BTL-Imaging package 100 ML IJ (11:27)
[2023-06-13] MEDS: Normal Saline - Diluent 50 ML VIAL IJ (11:27)
[2023-06-13] MEDS: Normal Saline Flush 10 ML SYR IVP (11:27)
== END 2023-06-13 01:26 ==
LOC: DI 01:06
PROVIDERS: PCP Nurse Practitioner Family; Visit Provider Nurse Practitioner Family
DX: Z79.899 Other long term (current) drug therapy (principal); D35.02 Benign neoplasm of left adrenal gland; C34.91 Malignant neoplasm of unspecified part of right bronchus or lung
CPT/HCPCS: 74177; 80053; 71260; 83735; 84439; 84443; 85025

== ENCOUNTER 2023-06-19 13:41 | Outpatient (CLI) | payer MEDICARE, SELFPAY ==
[2023-06-19 12:24] LABS: Abs Immature Grans 0.02 10^3/uL (0.0-0.06); Absolute Basophil Count 0.05 10^3/uL (0.0-0.2); Absolute Eosinophil Count 0.15 10^3/uL (0.0-0.7); Absolute Lymphocyte Count 1.39 10^3/uL (1.2-3.4); Absolute Monocyte Count 0.63 10^3/uL (0.1-0.8); Absolute Neutrophil Count 3.64 10^3/uL (1.2-6.7); Basophils % 0.9; Eosinophils % 2.6; HCT 45.3 % (40.0-50.0); HGB 15.5 g/dL (13.5-17.5); Immature Grans % 0.3; Lymphocytes % 23.6; MCH 33.8 pg (27.0-33.0); MCHC 34.2 % (32.0-36.0); MCV 99 fL (80-95); MPV 8.7 fL (8.0-11.0); Monocytes % 10.7; Neutrophils % 61.9; Platelet Count 174 10^3/uL (130-400); RBC 4.59 10^6/uL (4.36-5.78); RDW 11.9 % (11.8-14.1); RDW-SD 43.3 fL; WBC 5.88 10^3/uL (4.4-10.8)
[2023-06-19 12:53] LABS: ALT 26 U/L (16-63); AST 26 U/L (15-37); Alkaline Phosphatase 72 U/L (46-116); Anion Gap 5.6 mmol/L (3-11); BUN 24 mg/dL (7-18); Bilirubin, Total 0.3 mg/dL (0.2-1.0); CO2 29.4 mmol/L (21.0-32.0); CREATININE 1.6 mg/dL (0.70-1.30); Calcium 9.3 mg/dL (8.5-10.1); Chloride 101 mmol/L (98-107); Estimated GFR 46.06 (mL/min/1.73m2); FREE T4 1.07 ng/dL (0.76-1.46); Glucose 94 mg/dL (74-106); Magnesium 2.3 mg/dL (1.8-2.4); Potassium 4.4 mmol/L (3.5-5.1); Sodium 136 mmol/L (136-145); TSH 1.35 uIU/mL (0.36-3.74)
== END 2023-06-19 13:42 | disposition home or self-care (01) ==
LOC: LBO 13:42
PROVIDERS: PCP Nurse Practitioner Family; Visit Provider Internal Medicine Medical Oncology
DX: J91.0 Malignant pleural effusion (principal); Z79.899 Other long term (current) drug therapy; C34.91 Malignant neoplasm of unspecified part of right bronchus or lung
CPT/HCPCS: 36415; 80053; 83735; 84439; 84443; 85025

== ENCOUNTER 2023-07-10 02:28 | Outpatient (CLI) | payer MEDICARE, SELFPAY ==
[2023-07-10 08:13] LABS: Abs Immature Grans 0.02 10^3/uL (0.0-0.06); Absolute Basophil Count 0.07 10^3/uL (0.0-0.2); Absolute Eosinophil Count 0.14 10^3/uL (0.0-0.7); Absolute Lymphocyte Count 1.21 10^3/uL (1.2-3.4); Absolute Monocyte Count 0.44 10^3/uL (0.1-0.8); Absolute Neutrophil Count 4.78 10^3/uL (1.2-6.7); Basophils % 1.1; Eosinophils % 2.1; HCT 45.6 % (40.0-50.0); HGB 15.3 g/dL (13.5-17.5); Immature Grans % 0.3; Lymphocytes % 18.2; MCH 32.4 pg (27.0-33.0); MCHC 33.6 % (32.0-36.0); MCV 97 fL (80-95); MPV 8.6 fL (8.0-11.0); Monocytes % 6.6; Neutrophils % 71.7; Platelet Count 161 10^3/uL (130-400); RBC 4.72 10^6/uL (4.36-5.78); RDW-SD 42.8 fL; WBC 6.66 10^3/uL (4.4-10.8)
[2023-07-10 08:45] LABS: ALT 26 U/L (16-63); AST 25 U/L (15-37); Albumin 3.9 g/dL (3.4-5.0); Alkaline Phosphatase 77 U/L (46-116); Anion Gap 7.6 mmol/L (3-11); BUN 22 mg/dL (7-18); Bilirubin, Total 0.3 mg/dL (0.2-1.0); CO2 29.4 mmol/L (21.0-32.0); CREATININE 1.8 mg/dL (0.70-1.30); Calcium 9.1 mg/dL (8.5-10.1); Chloride 101 mmol/L (98-107); Estimated GFR 39.99 (mL/min/1.73m2); FREE T4 0.95 ng/dL (0.76-1.46); Glucose 135 mg/dL (74-106); Magnesium 2.1 mg/dL (1.8-2.4); Potassium 3.7 mmol/L (3.5-5.1); Sodium 138 mmol/L (136-145); TSH 2.28 uIU/mL (0.36-3.74); Total Protein 7.8 g/dL (6.4-8.2)
== END 2023-07-10 02:29 | disposition home or self-care (01) ==
LOC: LBO 02:28
PROVIDERS: PCP Nurse Practitioner Family; Visit Provider Internal Medicine Medical Oncology
DX: J91.0 Malignant pleural effusion (principal); Z79.899 Other long term (current) drug therapy; C34.91 Malignant neoplasm of unspecified part of right bronchus or lung
CPT/HCPCS: 36415; 80053; 83735; 84439; 84443; 85025

== ENCOUNTER 2023-07-31 04:18 | Outpatient (CLI) | payer MEDICARE, SELFPAY ==
[2023-07-31 09:45] LABS: Abs Immature Grans 0.02 10^3/uL (0.0-0.06); Absolute Basophil Count 0.05 10^3/uL (0.0-0.2); Absolute Eosinophil Count 0.21 10^3/uL (0.0-0.7); Absolute Lymphocyte Count 1.37 10^3/uL (1.2-3.4); Absolute Monocyte Count 0.65 10^3/uL (0.1-0.8); Absolute Neutrophil Count 4.41 10^3/uL (1.2-6.7); Basophils % 0.7; Eosinophils % 3.1; HCT 47.3 % (40.0-50.0); HGB 15.9 g/dL (13.5-17.5); Immature Grans % 0.3; Lymphocytes % 20.4; MCH 32.4 pg (27.0-33.0); MCHC 33.6 % (32.0-36.0); MCV 96 fL (80-95); MPV 8.6 fL (8.0-11.0); Monocytes % 9.7; Neutrophils % 65.8; Platelet Count 155 10^3/uL (130-400); RBC 4.91 10^6/uL (4.36-5.78); RDW 12.4 % (11.8-14.1); RDW-SD 44.4 fL; WBC 6.71 10^3/uL (4.4-10.8)
[2023-07-31 10:50] LABS: ALT 28 U/L (16-63); AST 29 U/L (15-37); Alkaline Phosphatase 79 U/L (46-116); Anion Gap 7.5 mmol/L (3-11); BUN 20 mg/dL (7-18); Bilirubin, Total 0.3 mg/dL (0.2-1.0); CO2 31.5 mmol/L (21.0-32.0); CREATININE 1.6 mg/dL (0.70-1.30); Calcium 9.7 mg/dL (8.5-10.1); Chloride 101 mmol/L (98-107); Estimated GFR 46.06 (mL/min/1.73m2); FREE T4 0.94 ng/dL (0.76-1.46); Glucose 88 mg/dL (74-106); Magnesium 2.2 mg/dL (1.8-2.4); Potassium 3.8 mmol/L (3.5-5.1); Sodium 140 mmol/L (136-145); TSH 1.86 uIU/mL (0.36-3.74)
== END 2023-07-31 04:19 | disposition home or self-care (01) ==
LOC: LBO 04:18
PROVIDERS: PCP Nurse Practitioner Family; Visit Provider Internal Medicine Medical Oncology
DX: J91.0 Malignant pleural effusion (principal); Z79.899 Other long term (current) drug therapy; C34.91 Malignant neoplasm of unspecified part of right bronchus or lung
CPT/HCPCS: 36415; 80053; 83735; 84439; 84443; 85025

== ENCOUNTER 2023-09-04 09:29 | Outpatient (RCR) | payer MEDICARE, SELFPAY ==
[2023-09-04] MEDS: Normal Saline Flush 10 ML SYR IVP (09:51)
[2023-09-04 10:09] LABS: Abs Immature Grans 0.03 10^3/uL (0.0-0.06); Absolute Basophil Count 0.06 10^3/uL (0.0-0.2); Absolute Eosinophil Count 0.16 10^3/uL (0.0-0.7); Absolute Monocyte Count 0.67 10^3/uL (0.1-0.8); Basophils % 0.8; Eosinophils % 2.2; HCT 44.8 % (40.0-50.0); HGB 15.2 g/dL (13.5-17.5); Immature Grans % 0.4; Lymphocytes % 22.2; MCH 32.3 pg (27.0-33.0); MCHC 33.9 % (32.0-36.0); MCV 95 fL (80-95); MPV 9.1 fL (8.0-11.0); Monocytes % 9.3; Neutrophils % 65.1; Platelet Count 194 10^3/uL (130-400); RBC 4.71 10^6/uL (4.36-5.78); RDW 12.9 % (11.8-14.1); RDW-SD 45.3 fL; WBC 7.22 10^3/uL (4.4-10.8)
[2023-09-04 10:42] LABS: ALT 31 U/L (16-63); AST 29 U/L (15-37); Albumin 4.1 g/dL (3.4-5.0); Alkaline Phosphatase 74 U/L (46-116); Anion Gap 7.8 mmol/L (3-11); BUN 27 mg/dL (7-18); Bilirubin, Total 0.5 mg/dL (0.2-1.0); CO2 28.2 mmol/L (21.0-32.0); CREATININE 1.7 mg/dL (0.70-1.30); Calcium 9.4 mg/dL (8.5-10.1); Chloride 100 mmol/L (98-107); Estimated GFR 42.83 (mL/min/1.73m2); FREE T4 1.16 ng/dL (0.76-1.46); Glucose 101 mg/dL (74-106); Magnesium 2.2 mg/dL (1.8-2.4); Potassium 4.4 mmol/L (3.5-5.1); Sodium 136 mmol/L (136-145); TSH 1.15 uIU/mL (0.36-3.74); Total Protein 8.1 g/dL (6.4-8.2)
== END 2023-09-12 23:59 | disposition home or self-care (01) ==
LOC: INF 09:29
PROVIDERS: Internal Medicine Medical Oncology; PCP Nurse Practitioner Family; Visit Provider Nurse Practitioner Family
DX: J91.0 Malignant pleural effusion (principal); Z79.899 Other long term (current) drug therapy; Z45.2 Encounter for adjustment and management of vascular access device
CPT/HCPCS: 36591; 80053; 83735; 84439; 84443; 85025

== ENCOUNTER → 2023-09-18 00:18 | Outpatient (CLI) | payer MEDICARE, SELFPAY ==
[2023-09-18] MEDS: Normal Saline - Diluent 50 ML VIAL IJ (12:55)
[2023-09-18] MEDS: Omnipaque 350 MG/ML 500 ML BTL-Imaging package 70 ML IJ (12:55)
--- NOTE | 2023-09-18 13:15 | DI.CT_ITS ---
Exam(s) CT CHEST W EXAM: CT CHEST W CLINICAL HISTORY: NONSMALL CELL LUNG CA RT LUNG,C34.91 TECHNIQUE: Imaging Protocol: Axial computed tomography images with coronal and sagittal reformatted images were created and reviewed CONTRAST MATERIAL: Intravenous: Omnipaque 350Contrast volume:70 mL. COMPARISON: CT CT CHEST/ABD/PEL W from 06/13/2023 FINDINGS: The examination is limited due to patient motion artifact. Tracheobronchial tree: Patent where visualized. Pulmonary parenchyma: No consolidation or dominant measurable mass. No architectural distortion. Ther e are calcified granuloma seen in the lungs. There is persistent mild nodularity along the right linda or fissure and posterior hemithorax. No new pulmonary nodules are seen. Mediastinum and Cora: No dominant adenopathy or fluid collection. The esophagus is unremarkable. Thyroid gland: Unremarkable. Pleura: No effusion or pneumothorax. Heart: The heart is not dilated. No coronary artery calcifications are seen. No pericardial effusion. Aorta: Thoracic aorta non-dilated. Mild atherosclerosis. Pulmonary arteries: The examination was not timed for maximum pulmonary artery opacification. No lar ge central pulmonary embolus is seen. Upper abdomen: Stable hepatic cyst. Lymph nodes: Within normal limits. Bones: Within normal limits for the patient's age. There is a reverse S type left thoracolumbar scol iosis. No aggressive osseous lesions are present. Tubes, Catheters, and Lines: There is a left-sided Dcylhe-P-Jzbt catheter. Soft tissues: Unremarkable. IMPRESSION: Stable appearance of the chest since 06/13/2023. No acute pulmonary process. RADIATION DOSE DELIVERED: Total DLP DATA REPOSITORY: All CT scans at this facility are submitted to the National Radiology Data Registry (NRDR) Dose Index Registry (DIR) with the [employer] (ACR). RADIATION OPTIMIZATION: All CT scans at this facility use at least one of these dose optimization te chniques: automated exposure control; mA and/or kV adjustment per patient size (includes targeted exa ms where dose is matched to clinical indication); or iterative reconstruction.
== END ==
PROVIDERS: PCP Nurse Practitioner Family; Visit Provider Nurse Practitioner Family
DX: C34.91 Malignant neoplasm of unspecified part of right bronchus or lung (principal)
CPT/HCPCS: 96523; 71260; J1642

== ENCOUNTER 2023-09-18 00:50 | Outpatient (RCR) | payer MEDICARE, SELFPAY ==
[2023-09-18] MEDS: Normal Saline Flush 10 ML SYR IVP (12:48)
[2023-09-18] MEDS: Heparin 500 UNITS/5 ML SYRINGE IVP (12:49)
== END 2023-10-12 23:59 | disposition home or self-care (01) ==
LOC: INF 00:50
PROVIDERS: PCP Nurse Practitioner Family; Visit Provider Nurse Practitioner Family
DX: Z79.899 Other long term (current) drug therapy (principal); J91.0 Malignant pleural effusion; Z45.2 Encounter for adjustment and management of vascular access device
CPT/HCPCS: 96523; J1642

== ENCOUNTER 2023-09-25 02:15 | Outpatient (RCR) | payer MEDICARE, SELFPAY ==
[2023-09-25] MEDS: Normal Saline Flush 10 ML SYR IVP (09:41)
[2023-09-25 10:07] LABS: Abs Immature Grans 0.02 10^3/uL (0.0-0.06); Absolute Basophil Count 0.06 10^3/uL (0.0-0.2); Absolute Eosinophil Count 0.15 10^3/uL (0.0-0.7); Absolute Lymphocyte Count 1.15 10^3/uL (1.2-3.4); Absolute Neutrophil Count 4.41 10^3/uL (1.2-6.7); Eosinophils % 2.4; HCT 41.4 % (40.0-50.0); HGB 14.1 g/dL (13.5-17.5); Immature Grans % 0.3; Lymphocytes % 18.3; MCH 32.3 pg (27.0-33.0); MCHC 34.1 % (32.0-36.0); MCV 95 fL (80-95); Monocytes % 7.9; Neutrophils % 70.1; Platelet Count 167 10^3/uL (130-400); RBC 4.36 10^6/uL (4.36-5.78); RDW-SD 45.3 fL; WBC 6.29 10^3/uL (4.4-10.8)
[2023-09-25 10:23] LABS: ALT 33 U/L (16-63); AST 34 U/L (15-37); Albumin 3.9 g/dL (3.4-5.0); Alkaline Phosphatase 72 U/L (46-116); Anion Gap 5.6 mmol/L (3-11); BUN 25 mg/dL (7-18); Bilirubin, Total 0.4 mg/dL (0.2-1.0); CO2 30.4 mmol/L (21.0-32.0); CREATININE 1.5 mg/dL (0.70-1.30); Calcium 8.9 mg/dL (8.5-10.1); Chloride 103 mmol/L (98-107); Estimated GFR 49.77 (mL/min/1.73m2); FREE T4 1.02 ng/dL (0.76-1.46); Glucose 118 mg/dL (74-106); Magnesium 2.2 mg/dL (1.8-2.4); Potassium 3.9 mmol/L (3.5-5.1); Sodium 139 mmol/L (136-145); TSH 1.12 uIU/mL (0.36-3.74); Total Protein 7.7 g/dL (6.4-8.2)
== END 2023-10-12 23:59 | disposition home or self-care (01) ==
LOC: INF 02:15
PROVIDERS: Internal Medicine Medical Oncology; PCP Nurse Practitioner Family; Visit Provider Nurse Practitioner Family
DX: J91.0 Malignant pleural effusion (principal); Z79.899 Other long term (current) drug therapy; Z45.2 Encounter for adjustment and management of vascular access device
CPT/HCPCS: 36591; 80053; 83735; 84439; 84443; 85025

== ENCOUNTER 2023-11-08 01:07 | Outpatient (RCR) | payer MEDICARE, SELFPAY ==
[2023-10-16] MEDS: Normal Saline Flush 10 ML SYR IVP (09:49)
[2023-10-16 10:45] LABS: Abs Immature Grans 0.04 10^3/uL (0.0-0.06); Absolute Basophil Count 0.06 10^3/uL (0.0-0.2); Absolute Eosinophil Count 0.21 10^3/uL (0.0-0.7); Absolute Lymphocyte Count 1.45 10^3/uL (1.2-3.4); Absolute Monocyte Count 0.57 10^3/uL (0.1-0.8); Absolute Neutrophil Count 4.48 10^3/uL (1.2-6.7); Basophils % 0.9; Eosinophils % 3.1; HCT 43.5 % (40.0-50.0); HGB 14.6 g/dL (13.5-17.5); Immature Grans % 0.6; Lymphocytes % 21.3; MCH 31.9 pg (27.0-33.0); MCHC 33.6 % (32.0-36.0); MCV 95 fL (80-95); MPV 9.3 fL (8.0-11.0); Monocytes % 8.4; Neutrophils % 65.7; Platelet Count 185 10^3/uL (130-400); RBC 4.57 10^6/uL (4.36-5.78); WBC 6.81 10^3/uL (4.4-10.8)
[2023-10-16 11:08] LABS: ALT 33 U/L (16-63); AST 28 U/L (15-37); Albumin 3.9 g/dL (3.4-5.0); Alkaline Phosphatase 73 U/L (46-116); BUN 25 mg/dL (7-18); Bilirubin, Total 0.4 mg/dL (0.2-1.0); CREATININE 1.5 mg/dL (0.70-1.30); Chloride 102 mmol/L (98-107); Estimated GFR 49.77 (mL/min/1.73m2); FREE T4 0.93 ng/dL (0.76-1.46); Glucose 100 mg/dL (74-106); Magnesium 2.2 mg/dL (1.8-2.4); Potassium 3.9 mmol/L (3.5-5.1); Sodium 138 mmol/L (136-145); TSH 2.13 uIU/mL (0.36-3.74); Total Protein 7.7 g/dL (6.4-8.2)
[2023-11-08] MEDS: Normal Saline Flush 10 ML SYR IVP (09:47)
[2023-11-08 10:05] LABS: Abs Immature Grans 0.03 10^3/uL (0.0-0.06); Absolute Basophil Count 0.06 10^3/uL (0.0-0.2); Absolute Eosinophil Count 0.27 10^3/uL (0.0-0.7); Absolute Lymphocyte Count 1.58 10^3/uL (1.2-3.4); Absolute Monocyte Count 0.56 10^3/uL (0.1-0.8); Absolute Neutrophil Count 4.03 10^3/uL (1.2-6.7); Basophils % 0.9; Eosinophils % 4.1; HCT 45.2 % (40.0-50.0); HGB 15.2 g/dL (13.5-17.5); Immature Grans % 0.5; Lymphocytes % 24.2; MCH 32.1 pg (27.0-33.0); MCHC 33.6 % (32.0-36.0); MCV 96 fL (80-95); Monocytes % 8.6; Neutrophils % 61.7; Platelet Count 181 10^3/uL (130-400); RBC 4.73 10^6/uL (4.36-5.78); RDW 12.8 % (11.8-14.1); RDW-SD 45.5 fL; WBC 6.53 10^3/uL (4.4-10.8)
[2023-11-08 10:29] LABS: ALT 36 U/L (16-63); AST 29 U/L (15-37); Alkaline Phosphatase 74 U/L (46-116); Anion Gap 3.1 mmol/L (3-11); BUN 24 mg/dL (7-18); Bilirubin, Total 0.4 mg/dL (0.2-1.0); CO2 30.9 mmol/L (21.0-32.0); CREATININE 1.5 mg/dL (0.70-1.30); Chloride 102 mmol/L (98-107); Estimated GFR 49.77 (mL/min/1.73m2); Glucose 99 mg/dL (74-106); Magnesium 2.3 mg/dL (1.8-2.4); Potassium 4.2 mmol/L (3.5-5.1); Sodium 136 mmol/L (136-145); TSH 1.91 uIU/mL (0.36-3.74); Total Protein 7.8 g/dL (6.4-8.2)
[2023-11-08 10:47] LABS: FREE T4 0.94 ng/dL (0.76-1.46)
== END 2023-11-12 23:59 | disposition home or self-care (01) ==
LOC: INF 01:07
PROVIDERS: Internal Medicine Medical Oncology; PCP Nurse Practitioner Family; Visit Provider Nurse Practitioner Family
DX: J91.0 Malignant pleural effusion (principal); Z79.899 Other long term (current) drug therapy; Z45.2 Encounter for adjustment and management of vascular access device
CPT/HCPCS: 36591; 80053; 83735; 84439; 84443; 85025

== ENCOUNTER 2023-12-04 03:48 | Outpatient (RCR) | payer MEDICARE, SELFPAY ==
[2023-12-04] MEDS: Normal Saline Flush 10 ML SYR IVP (12:38)
[2023-12-04 13:00] LABS: Abs Immature Grans 0.03 10^3/uL (0.0-0.06); Absolute Basophil Count 0.06 10^3/uL (0.0-0.2); Absolute Lymphocyte Count 1.58 10^3/uL (1.2-3.4); Absolute Monocyte Count 0.69 10^3/uL (0.1-0.8); Absolute Neutrophil Count 4.24 10^3/uL (1.2-6.7); Basophils % 0.9; Eosinophils % 4.3; HCT 43.7 % (40.0-50.0); HGB 14.5 g/dL (13.5-17.5); Immature Grans % 0.4; Lymphocytes % 22.9; MCH 31.7 pg (27.0-33.0); MCHC 33.2 % (32.0-36.0); MCV 96 fL (80-95); Neutrophils % 61.5; Platelet Count 171 10^3/uL (130-400); RBC 4.57 10^6/uL (4.36-5.78); RDW 12.9 % (11.8-14.1); RDW-SD 45.2 fL
[2023-12-04 13:37] LABS: ALT 34 U/L (16-63); AST 33 U/L (15-37); Alkaline Phosphatase 67 U/L (46-116); Anion Gap 7.6 mmol/L (3-11); BUN 27 mg/dL (7-18); Bilirubin, Total 0.4 mg/dL (0.2-1.0); CO2 30.4 mmol/L (21.0-32.0); CREATININE 1.6 mg/dL (0.70-1.30); Chloride 102 mmol/L (98-107); Estimated GFR 45.78 (mL/min/1.73m2); Glucose 107 mg/dL (74-106); Magnesium 2.4 mg/dL (1.8-2.4); Potassium 4.1 mmol/L (3.5-5.1); Sodium 140 mmol/L (136-145); TSH 1.51 uIU/mL (0.36-3.74); Total Protein 7.7 g/dL (6.4-8.2)
== END 2023-12-13 23:59 | disposition home or self-care (01) ==
LOC: INF 03:48
PROVIDERS: PCP Nurse Practitioner Family; Visit Provider Nurse Practitioner Family
DX: J91.0 Malignant pleural effusion (principal); Z79.899 Other long term (current) drug therapy; Z45.2 Encounter for adjustment and management of vascular access device
CPT/HCPCS: 36591; 80053; 83735; 84439; 84443; 85025

== ENCOUNTER → 2023-12-21 00:40 | Outpatient (CLI) | payer MEDICARE, SELFPAY ==
[2023-12-21] MEDS: Omnipaque 350 MG/ML 500 ML BTL-Imaging package 100 ML IJ (10:22)
[2023-12-21] MEDS: Normal Saline - Diluent 50 ML VIAL IJ (10:22)
--- NOTE | 2023-12-21 10:30 | DI.CT_ITS ---
Exam(s) CT CHEST W EXAM: CT CHEST W CLINICAL HISTORY: RT LUNG CA,C34.91,ASSESS TREATMENT RESPONSE TECHNIQUE: Imaging Protocol: Axial computed tomography images with coronal and sagittal reformatted images were created and reviewed CONTRAST MATERIAL: Intravenous: Omnipaque 350 Contrast volume:structured data ml. COMPARISON: CT CT CHEST W from 09/18/2023 FINDINGS: Exam is mildly limited due to respiratory motion. Port over left upper chest. Pulmonary parenchyma: No consolidation. Mild densities again noted medially in the medial superior se gment of the lower lobe. Mild emphysematous changes. Tracheobronchial tree: No bronchiectasis or mucous plugging. Mediastinum and Cora: No dominant adenopathy or fluid collection. Pleura: Stable air appearance of pleural thickening along the right posterior upper lobe. Stable mil d thickening at the major fissure. Show no effusion. No pneumothorax. Heart: The heart is not dilated. Mild coronary artery calcifications are seen. Aorta: Thoracic aorta non-dilated. Mild atherosclerotic changes. Upper abdomen: Somewhat limited by motion. Fatty infiltration of the liver. Stable low-density lesi on in left lobe. Bones: Prominent scoliosis and degenerative changes in the spine. Soft tissues: Unremarkable. IMPRESSION: Stable appearance of right-sided pleural thickening. No new abnormality. RADIATION DOSE DELIVERED: 758.88mGy.cm Total DLP DATA REPOSITORY: All CT scans at this facility are submitted to the National Radiology Data Registry (NRDR) Dose Index Registry (DIR) with the [employer] (ACR). RADIATION OPTIMIZATION: All CT scans at this facility use at least one of these dose optimization te chniques: automated exposure control; mA and/or kV adjustment per patient size (includes targeted exa ms where dose is matched to clinical indication); or iterative reconstruction.
== END ==
PROVIDERS: PCP Nurse Practitioner Family; Visit Provider Nurse Practitioner Family
DX: C34.91 Malignant neoplasm of unspecified part of right bronchus or lung (principal)
CPT/HCPCS: 36591; 80053; 71260; 83735; 84439; 84443; 85025

== ENCOUNTER 2023-12-21 02:01 | Outpatient (RCR) | payer MEDICARE, SELFPAY ==
[2023-12-21] MEDS: Normal Saline Flush 10 ML SYR IVP (09:45)
[2023-12-21 10:22] LABS: Abs Immature Grans 0.03 10^3/uL (0.0-0.06); Absolute Basophil Count 0.07 10^3/uL (0.0-0.2); Absolute Eosinophil Count 0.32 10^3/uL (0.0-0.7); Absolute Lymphocyte Count 1.22 10^3/uL (1.2-3.4); Absolute Monocyte Count 0.52 10^3/uL (0.1-0.8); Absolute Neutrophil Count 4.41 10^3/uL (1.2-6.7); Basophils % 1.1; Eosinophils % 4.9; HCT 44.6 % (40.0-50.0); Immature Grans % 0.5; Lymphocytes % 18.6; MCH 31.8 pg (27.0-33.0); MCHC 33.6 % (32.0-36.0); MCV 95 fL (80-95); MPV 8.8 fL (8.0-11.0); Monocytes % 7.9; Platelet Count 173 10^3/uL (130-400); RBC 4.71 10^6/uL (4.36-5.78); RDW 12.8 % (11.8-14.1); RDW-SD 44.7 fL; WBC 6.57 10^3/uL (4.4-10.8)
[2023-12-21 10:46] LABS: ALT 41 U/L (16-63); AST 41 U/L (15-37); Alkaline Phosphatase 68 U/L (46-116); Anion Gap 8.9 mmol/L (3-11); BUN 24 mg/dL (7-18); Bilirubin, Total 0.4 mg/dL (0.2-1.0); CO2 29.1 mmol/L (21.0-32.0); CREATININE 1.4 mg/dL (0.70-1.30); Calcium 8.6 mg/dL (8.5-10.1); Chloride 102 mmol/L (98-107); Estimated GFR 53.74 (mL/min/1.73m2); FREE T4 0.88 ng/dL (0.76-1.46); Glucose 114 mg/dL (74-106); Magnesium 2.1 mg/dL (1.8-2.4); Potassium 4.1 mmol/L (3.5-5.1); Sodium 140 mmol/L (136-145); TSH 1.89 uIU/mL (0.36-3.74); Total Protein 7.7 g/dL (6.4-8.2)
== END 2024-01-11 23:59 | disposition home or self-care (01) ==
LOC: INF 02:01
PROVIDERS: PCP Nurse Practitioner Family; Visit Provider Nurse Practitioner Family
DX: C34.91 Malignant neoplasm of unspecified part of right bronchus or lung (principal); J91.0 Malignant pleural effusion; Z79.899 Other long term (current) drug therapy; Z45.2 Encounter for adjustment and management of vascular access device
CPT/HCPCS: 36591; 80053; 83735; 84439; 84443; 85025

== ENCOUNTER 2024-01-24 03:33 | Outpatient (RCR) | payer MEDICARE, SELFPAY ==
[2024-01-24] MEDS: Normal Saline Flush 10 ML SYR IVP (12:19)
[2024-01-24 12:38] LABS: Abs Immature Grans 0.03 10^3/uL (0.0-0.06); Absolute Basophil Count 0.09 10^3/uL (0.0-0.2); Absolute Eosinophil Count 0.45 10^3/uL (0.0-0.7); Absolute Lymphocyte Count 1.68 10^3/uL (1.2-3.4); Absolute Monocyte Count 0.62 10^3/uL (0.1-0.8); Absolute Neutrophil Count 4.55 10^3/uL (1.2-6.7); Basophils % 1.2; Eosinophils % 6.1; HCT 46.3 % (40.0-50.0); HGB 15.5 g/dL (13.5-17.5); Immature Grans % 0.4; Lymphocytes % 22.6; MCH 31.8 pg (27.0-33.0); MCHC 33.5 % (32.0-36.0); MCV 95 fL (80-95); MPV 9.3 fL (8.0-11.0); Monocytes % 8.4; Neutrophils % 61.3; Platelet Count 183 10^3/uL (130-400); RBC 4.87 10^6/uL (4.36-5.78); RDW 12.9 % (11.8-14.1); RDW-SD 45.4 fL; WBC 7.42 10^3/uL (4.4-10.8)
[2024-01-24 13:02] LABS: ALT 37 U/L (16-63); AST 37 U/L (15-37); Alkaline Phosphatase 82 U/L (46-116); Anion Gap 8.6 mmol/L (3-11); BUN 20 mg/dL (7-18); Bilirubin, Total 0.3 mg/dL (0.2-1.0); CO2 29.4 mmol/L (21.0-32.0); CREATININE 1.4 mg/dL (0.70-1.30); Calcium 8.6 mg/dL (8.5-10.1); Chloride 102 mmol/L (98-107); Estimated GFR 53.74 (mL/min/1.73m2); FREE T4 1.04 ng/dL (0.76-1.46); Glucose 121 mg/dL (74-106); Magnesium 2.3 mg/dL (1.8-2.4); Potassium 4.2 mmol/L (3.5-5.1); Sodium 140 mmol/L (136-145); TSH 1.33 uIU/Ml (0.36-3.74); Total Protein 7.8 g/dL (6.4-8.2)
== END 2024-02-11 23:59 | disposition home or self-care (01) ==
LOC: INF 03:33
PROVIDERS: PCP Nurse Practitioner Family; Visit Provider Nurse Practitioner Family
DX: Z79.899 Other long term (current) drug therapy (principal); C34.91 Malignant neoplasm of unspecified part of right bronchus or lung; J91.0 Malignant pleural effusion; Z45.2 Encounter for adjustment and management of vascular access device
CPT/HCPCS: 36591; 80053; 83735; 84439; 84443; 85025

== ENCOUNTER 2024-03-04 04:53 | Outpatient (RCR) | payer MEDICARE, SELFPAY ==
[2024-02-12] MEDS: Normal Saline Flush 10 ML SYR IVP (09:18)
[2024-02-12 09:33] LABS: Abs Immature Grans 0.03 10^3/uL (0.0-0.06); Absolute Basophil Count 0.07 10^3/uL (0.0-0.2); Absolute Eosinophil Count 0.34 10^3/uL (0.0-0.7); Absolute Lymphocyte Count 1.09 10^3/uL (1.2-3.4); Absolute Monocyte Count 0.53 10^3/uL (0.1-0.8); Absolute Neutrophil Count 5.05 10^3/uL (1.2-6.7); Eosinophils % 4.8; HCT 46.6 % (40.0-50.0); HGB 15.3 g/dL (13.5-17.5); Immature Grans % 0.4; Lymphocytes % 15.3; MCH 31.9 pg (27.0-33.0); MCHC 32.8 % (32.0-36.0); MCV 97 fL (80-95); MPV 8.8 fL (8.0-11.0); Monocytes % 7.5; Platelet Count 174 10^3/uL (130-400); RDW 12.9 % (11.8-14.1); RDW-SD 46.3 fL; WBC 7.11 10^3/uL (4.4-10.8)
[2024-02-12 09:58] LABS: ALT 42 U/L (16-63); AST 36 U/L (15-37); Albumin 3.9 g/dL (3.4-5.0); Alkaline Phosphatase 73 U/L (46-116); BUN 23 mg/dL (7-18); Bilirubin, Total 0.4 mg/dL (0.2-1.0); CREATININE 1.4 mg/dL (0.70-1.30); Calcium 8.8 mg/dL (8.5-10.1); Chloride 103 mmol/L (98-107); Estimated GFR 53.74 (mL/min/1.73m2); FREE T4 0.95 ng/dL (0.76-1.46); Glucose 112 mg/dL (74-106); Magnesium 2.3 mg/dL (1.8-2.4); Potassium 4.2 mmol/L (3.5-5.1); Sodium 142 mmol/L (136-145); TSH 0.94 uIU/Ml (0.36-3.74); Total Protein 7.5 g/dL (6.4-8.2)
[2024-03-04] MEDS: Normal Saline Flush 10 ML SYR IVP (13:48)
[2024-03-04 13:56] LABS: Abs Immature Grans 0.08 10^3/uL (0.0-0.06); Absolute Eosinophil Count 0.06 10^3/uL (0.0-0.7); Absolute Lymphocyte Count 1.01 10^3/uL (1.2-3.4); Absolute Monocyte Count 0.39 10^3/uL (0.1-0.8); Basophils % 0.2; Eosinophils % 0.5; HCT 45.7 % (40.0-50.0); Immature Grans % 0.7; Lymphocytes % 8.3; MCH 31.8 pg (27.0-33.0); MCHC 32.8 % (32.0-36.0); MCV 97 fL (80-95); Monocytes % 3.2; Neutrophils % 87.1; Platelet Count 144 10^3/uL (130-400); RBC 4.71 10^6/uL (4.36-5.78); RDW 13.2 % (11.8-14.1); RDW-SD 47.9 fL; WBC 12.17 10^3/uL (4.4-10.8)
[2024-03-04 13:57] LABS: Absolute Basophil Count 0.02 10^3/uL (0.0-0.2)
[2024-03-04 14:20] LABS: ALT 45 U/L (16-63); AST 33 U/L (15-37); Albumin 4.1 g/dL (3.4-5.0); Alkaline Phosphatase 66 U/L (46-116); Anion Gap 10.1 mmol/L (3-11); BUN 21 mg/dL (7-18); Bilirubin, Total 0.6 mg/dL (0.2-1.0); CO2 28.9 mmol/L (21.0-32.0); CREATININE 1.4 mg/dL (0.70-1.30); Chloride 101 mmol/L (98-107); Estimated GFR 53.74 (mL/min/1.73m2); FREE T4 1.02 ng/dL (0.76-1.46); Glucose 107 mg/dL (74-106); Magnesium 2.2 mg/dL (1.8-2.4); Potassium 4.4 mmol/L (3.5-5.1); Sodium 140 mmol/L (136-145); TSH 0.32 uIU/Ml (0.36-3.74); Total Protein 7.6 g/dL (6.4-8.2)
== END 2024-03-12 23:59 | disposition home or self-care (01) ==
LOC: INF 04:53
PROVIDERS: PCP Nurse Practitioner Family; Visit Provider Nurse Practitioner Family
DX: Z79.899 Other long term (current) drug therapy (principal); C34.91 Malignant neoplasm of unspecified part of right bronchus or lung; Z45.2 Encounter for adjustment and management of vascular access device
CPT/HCPCS: 36591; 80053; 83735; 84439; 84443; 85025

== ENCOUNTER → 2024-04-09 00:22 | Outpatient (CLI) | payer MEDICARE, SELFPAY ==
--- NOTE | 2024-04-09 | DI.CT_ITS ---
Exam(s) CT CHEST W EXAM: CT CHEST W CLINICAL HISTORY: Non-small cell lung CA, rt lung, C34.91, stage IV, restaging TECHNIQUE: Imaging Protocol: Axial computed tomography images with coronal and sagittal reformatted images were created and reviewed CONTRAST MATERIAL: Intravenous: Omnipaque 350Contrast volume:70 mL. COMPARISON: CT CT CHEST W from 02/22/[address] CHEST/ABD/PEL W from 03/28/[address] CHEST/ABD/PEL W from 06/13/[address] CHEST W from 09/18/[address] CHEST W from 12/21/2023 FINDINGS: The examination is limited due to patient motion artifact. Tracheobronchial tree: Patent where visualized. Pulmonary parenchyma: There are calcified granuloma in the lungs. There are stable small density see n in the medial aspect of the superior segment of the right lower lobe. No new pulmonary infiltrates or nodules are identified. Mediastinum and Cora: No dominant adenopathy or fluid collection. The esophagus is unremarkable. Pleura: There is no pleural effusion. Stable very mild pleural thickening is seen in the right hemit horax. Heart: Mildly enlarged heart. Coronary artery calcifications are present. No pericardial effusion. Aorta: Thoracic aorta non-dilated. Atherosclerotic calcification is present. No evidence of dissecti on. Pulmonary arteries: Due to the timing of the bolus, pulmonary arteries were not adequately opacified for evaluation of pulmonary emboli. Upper abdomen: There is a stable cyst in the left lobe of the liver. There is a stable left adrenal nodule. Lymph nodes: Within normal limits. Bones: Within normal limits for the patient's age. Tubes, Catheters, and Lines: There is a left-sided Lgvneu-Q-Wslf type catheter in place. Soft tissues: Unremarkable. IMPRESSION: Stable appearance of the right lung and pleura since 12/21/2023. No acute pulmonary process. RADIATION DOSE DELIVERED: 842.3mGy.cm Total DLP DATA REPOSITORY: All CT scans at this facility are submitted to the National Radiology Data Registry (NRDR) Dose Index Registry (DIR) with the [employer] (ACR). RADIATION OPTIMIZATION: All CT scans at this facility use at least one of these dose optimization te chniques: automated exposure control; mA and/or kV adjustment per patient size (includes targeted exa ms where dose is matched to clinical indication); or iterative reconstruction.
[2024-04-09] MEDS: Omnipaque 350 MG/ML 100 ML BTL IJ (09:29)
[2024-04-09] MEDS: Normal Saline - Diluent 50 ML VIAL IJ (09:36)
== END ==
PROVIDERS: PCP Nurse Practitioner Family; Visit Provider Internal Medicine Medical Oncology
DX: C34.91 Malignant neoplasm of unspecified part of right bronchus or lung (principal)
CPT/HCPCS: 36591; 80053; 71260; 83735; 84439; 84443; 85025; J3490

== ENCOUNTER 2024-04-09 01:14 | Outpatient (RCR) | payer MEDICARE, SELFPAY ==
[2024-04-09 08:49] LABS: Abs Immature Grans 0.06 10^3/uL (0.0-0.06); Absolute Basophil Count 0.08 10^3/uL (0.0-0.2); Absolute Eosinophil Count 0.15 10^3/uL (0.0-0.7); Absolute Lymphocyte Count 1.68 10^3/uL (1.2-3.4); Absolute Monocyte Count 0.53 10^3/uL (0.1-0.8); Absolute Neutrophil Count 5.78 10^3/uL (1.2-6.7); Eosinophils % 1.8 %; HCT 43.7 % (40.0-50.0); HGB 14.6 g/dL (13.5-17.5); Immature Grans % 0.7 %; Lymphocytes % 20.3 %; MCH 32.1 pg (27.0-33.0); MCHC 33.4 % (32.0-36.0); MCV 96 fL (80-95); Monocytes % 6.4 %; Neutrophils % 69.8 %; Platelet Count 190 10^3/uL (130-400); RBC 4.55 10^6/uL (4.36-5.78); RDW 13.7 % (11.8-14.1); RDW-SD 48.6 fL; WBC 8.28 10^3/uL (4.4-10.8)
[2024-04-09 09:15] LABS: ALT 46 U/L (16-63); AST 36 U/L (15-37); Alkaline Phosphatase 58 U/L (46-116); Anion Gap 6.5 mmol/L (3-11); BUN 22 mg/dL (7-18); Bilirubin, Total 0.5 mg/dL (0.2-1.0); CO2 30.5 mmol/L (21.0-32.0); CREATININE 1.5 mg/dL (0.70-1.30); Calcium 8.7 mg/dL (8.5-10.1); Chloride 102 mmol/L (98-107); Estimated GFR 49.47 (mL/min/1.73m2); FREE T4 0.93 ng/dL (0.76-1.46); Glucose 121 mg/dL (74-106); Magnesium 2.1 mg/dL (1.8-2.4); Potassium 3.8 mmol/L (3.5-5.1); Sodium 139 mmol/L (136-145); TSH 0.79 uIU/Ml (0.36-3.74); Total Protein 7.3 g/dL (6.4-8.2)
[2024-04-09] MEDS: Normal Saline Flush 10 ML SYR IVP (10:01)
== END 2024-04-12 23:59 | disposition home or self-care (01) ==
LOC: INF 01:14
PROVIDERS: PCP Nurse Practitioner Family; Visit Provider Nurse Practitioner Family
DX: Z79.899 Other long term (current) drug therapy (principal); C34.91 Malignant neoplasm of unspecified part of right bronchus or lung; Z45.2 Encounter for adjustment and management of vascular access device
CPT/HCPCS: 36591; 80053; 83735; 84439; 84443; 85025

== ENCOUNTER 2024-06-25 01:52 | Outpatient (CLI) | payer MEDICARE, SELFPAY ==
--- NOTE | 2024-06-25 | DI.CT_ITS ---
Exam(s) CT CHEST W EXAM: CT CHEST W CLINICAL HISTORY: C34.91 Non-small cell Ca of Rt Lung,J98.4 Pneumonitis TECHNIQUE: Imaging Protocol: Axial computed tomography images with coronal and sagittal reformatted images were created and reviewed CONTRAST MATERIAL: Intravenous: Omnipaque 350Contrast volume:70 mL. COMPARISON: CT CT CHEST W from 02/22/[address] CHEST/ABD/PEL W from 06/13/[address] CHEST W from 09/18/[address] CHEST W from 12/21/[address] CHEST W from 04/09/2024 FINDINGS: Tracheobronchial tree: Patent where visualized. There is no bronchiectasis. Pulmonary parenchyma: No consolidation or dominant measurable mass. Calcified granuloma are present. The small density in the superior segment of the right lower lobe appears stable. No new pulmonary infiltrates are seen. Mediastinum and Cora: No dominant adenopathy or fluid collection. The esophagus is unremarkable. Pleura: No effusion or pneumothorax. Stable appearance of the pleura. Heart: The heart is not dilated. Coronary artery calcifications are present. No pericardial effusion . Aorta: The ascending thoracic aorta measures 3.7 x 4.6 cm. Atherosclerotic calcification is present Pulmonary arteries: Due to the timing of the bolus, the pulmonary arteries are inadequately opacified for evaluation of pulmonary emboli. Upper abdomen: There are stable findings in the abdomen. Lymph nodes: Within normal limits. Bones: Within normal limits for the patient's age. Tubes, Catheters, and Lines: There is a Juyyme-A-Rbsi catheter in the left chest wall. The tip of th e catheter is at the cavoatrial junction. Soft tissues: There is gynecomastia. IMPRESSION: Stable appearance of the chest since 04/09/2024. RADIATION DOSE DELIVERED: Total DLP DATA REPOSITORY: All CT scans at this facility are submitted to the National Radiology Data Registry (NRDR) Dose Index Registry (DIR) with the [employer] (ACR). RADIATION OPTIMIZATION: All CT scans at this facility use at least one of these dose optimization te chniques: automated exposure control; mA and/or kV adjustment per patient size (includes targeted exa ms where dose is matched to clinical indication); or iterative reconstruction.
[2024-06-25] MEDS: Omnipaque 350 MG/ML 500 ML BTL-Imaging package IJ (09:38)
== END 2024-06-25 02:12 ==
LOC: DI 01:52
PROVIDERS: PCP Nurse Practitioner Family; Visit Provider Internal Medicine Medical Oncology
DX: C34.31 Malignant neoplasm of lower lobe, right bronchus or lung (principal)
CPT/HCPCS: 36591; 80053; 71260; 83735; 84439; 84443; 85025

== ENCOUNTER 2024-06-25 02:18 | Outpatient (RCR) | payer MEDICARE, SELFPAY ==
[2024-06-25 08:54] LABS: Abs Immature Grans 0.06 10^3/uL (0.0-0.06); Absolute Basophil Count 0.05 10^3/uL (0.0-0.2); Absolute Eosinophil Count 0.25 10^3/uL (0.0-0.7); Absolute Lymphocyte Count 1.37 10^3/uL (1.2-3.4); Absolute Monocyte Count 0.51 10^3/uL (0.1-0.8); Absolute Neutrophil Count 4.63 10^3/uL (1.2-6.7); Basophils % 0.7 %; Eosinophils % 3.6 %; HCT 42.7 % (40.0-50.0); HGB 14.3 g/dL (13.5-17.5); Immature Grans % 0.9 %; Lymphocytes % 19.9 %; MCH 32.1 pg (27.0-33.0); MCHC 33.5 % (32.0-36.0); MCV 96 fL (80-95); MPV 9.5 fL (8.0-11.0); Monocytes % 7.4 %; Neutrophils % 67.5 %; Platelet Count 160 10^3/uL (130-400); RBC 4.45 10^6/uL (4.36-5.78); RDW 12.4 % (11.8-14.1); RDW-SD 44.1 fL; WBC 6.87 10^3/uL (4.4-10.8)
[2024-06-25 09:20] LABS: ALT 38 U/L (16-63); AST 35 U/L (15-37); Albumin 3.8 g/dL (3.4-5.0); Alkaline Phosphatase 72 U/L (46-116); Anion Gap 7.6 mmol/L (3-11); BUN 24 mg/dL (7-18); Bilirubin, Total 0.48 mg/dL (0.2-1.0); CO2 29.4 mmol/L (21.0-32.0); CREATININE 1.6 mg/dL (0.70-1.30); Calcium 8.7 mg/dL (8.5-10.1); Chloride 102 mmol/L (98-107); Estimated GFR 45.78 (mL/min/1.73m2); FREE T4 0.98 ng/dL (0.76-1.46); Glucose 134 mg/dL (74-106); Magnesium 2.1 mg/dL (1.8-2.4); Sodium 139 mmol/L (136-145); TSH 2.66 uIU/Ml (0.36-3.74); Total Protein 7.3 g/dL (6.4-8.2)
[2024-06-25] MEDS: Normal Saline Flush 10 ML SYR IVP (09:28)
== END 2024-07-13 23:59 | disposition home or self-care (01) ==
LOC: INF 02:18
PROVIDERS: Nurse Practitioner Family; PCP Nurse Practitioner Family; Visit Provider Internal Medicine Medical Oncology
DX: Z79.899 Other long term (current) drug therapy (principal); C34.91 Malignant neoplasm of unspecified part of right bronchus or lung; Z45.2 Encounter for adjustment and management of vascular access device
CPT/HCPCS: 36591; 80053; 83735; 84439; 84443; 85025

== ENCOUNTER 2024-09-24 01:40 | Outpatient (CLI) | payer MEDICARE, SELFPAY ==
--- NOTE | 2024-09-24 | DI.CT_ITS ---
Exam(s) CT CHEST W EXAM: CT CHEST W CLINICAL HISTORY: Stage IV non-small cell CA of rt lung, C34.91, on treatment break s/p TECHNIQUE: Imaging Protocol: Axial computed tomography images with coronal and sagittal reformatted images were created and reviewed. Computer aided detection (CAD) was utilized. CONTRAST MATERIAL: Intravenous: Omnipaque 350 Contrast volume:structured data ml. COMPARISON: CT CT CHEST PE CTA from 01/20/[address] CHEST W from 02/22/[address] CHEST W from 06/25/2024 FINDINGS: Exam mildly limited by streak artifact related to arm positioning. Pulmonary parenchyma: Stable small area of increased density in the medial superior segment of the ri ght lower lobe which may represent scarring. No consolidation. No dominant measurable mass. Scatter ed calcified granulomas. Mild emphysematous changes. Tracheobronchial tree: No bronchiectasis or mucous plugging. Mediastinum and Cora: No dominant adenopathy or fluid collection. Pleura: Minimal thickening along the major fissure. No effusion. No pneumothorax. Heart: The heart is mildly dilated. Mild coronary artery calcifications are seen. Aorta: Thoracic aorta non-dilated. Mild atherosclerotic changes. Pulmonary arteries: No gross evidence of emboli. Upper abdomen: No acute findings. Stable liver cyst. Bones: Scoliosis and prominentdegenerative changes in the spine. Soft tissues: Port over left upper chest. IMPRESSION: Stable minimal density in the superior right upper lobe. No new or suspicious findings. RADIATION DOSE DELIVERED: 520.8mGy.cm Total DLP DATA REPOSITORY: All CT scans at this facility are submitted to the National Radiology Data Registry (NRDR) Dose Index Registry (DIR) with the [employer] (ACR). RADIATION OPTIMIZATION: All CT scans at this facility use at least one of these dose optimization te chniques: automated exposure control; mA and/or kV adjustment per patient size (includes targeted exa ms where dose is matched to clinical indication); or iterative reconstruction.
[2024-09-24] MEDS: Omnipaque 350 MG/ML 500 ML BTL-Imaging package IJ (10:11)
[2024-09-24] MEDS: Normal Saline - Diluent 50 ML VIAL IJ (10:13)
== END 2024-09-24 02:00 ==
LOC: DI 01:40
PROVIDERS: PCP Nurse Practitioner Family; Visit Provider Nurse Practitioner Family
DX: C34.91 Malignant neoplasm of unspecified part of right bronchus or lung (principal)
CPT/HCPCS: 36591; 80053; 71260; 85025

== ENCOUNTER 2024-09-24 09:19 | Outpatient (RCR) | payer MEDICARE, SELFPAY ==
[2024-09-24] MEDS: Normal Saline Flush 10 ML SYR IVP (09:24)
[2024-09-24 09:47] LABS: Abs Immature Grans 0.05 10^3/uL (0.0-0.06); Absolute Basophil Count 0.05 10^3/uL (0.0-0.2); Absolute Eosinophil Count 0.19 10^3/uL (0.0-0.7); Absolute Lymphocyte Count 1.34 10^3/uL (1.2-3.4); Absolute Monocyte Count 0.48 10^3/uL (0.1-0.8); Basophils % 0.7 %; Eosinophils % 2.8 %; HCT 43.6 % (40.0-50.0); HGB 14.5 g/dL (13.5-17.5); Immature Grans % 0.7 %; MCHC 33.3 % (32.0-36.0); MCV 93 fL (80-95); MPV 9.1 fL (8.0-11.0); Monocytes % 7.2 %; Neutrophils % 68.6 %; Platelet Count 179 10^3/uL (130-400); RBC 4.68 10^6/uL (4.36-5.78); RDW 12.6 % (11.8-14.1); RDW-SD 43.5 fL; WBC 6.71 10^3/uL (4.4-10.8)
[2024-09-24 10:08] LABS: ALT 39 U/L (16-63); AST 33 U/L (15-37); Albumin 3.8 g/dL (3.4-5.0); Alkaline Phosphatase 76 U/L (46-116); BUN 20 mg/dL (7-18); Bilirubin, Total 0.33 mg/dL (0.2-1.0); CREATININE 1.6 mg/dL (0.70-1.30); Calcium 8.7 mg/dL (8.5-10.1); Chloride 103 mmol/L (98-107); Estimated GFR 45.78 (mL/min/1.73m2); Glucose 156 mg/dL (74-106); Potassium 4.2 mmol/L (3.5-5.1); Sodium 140 mmol/L (136-145); Total Protein 7.6 g/dL (6.4-8.2)
== END 2024-10-12 23:59 | disposition home or self-care (01) ==
LOC: INF 09:19
PROVIDERS: Nurse Practitioner Family; PCP Nurse Practitioner Family; Visit Provider Internal Medicine Medical Oncology
DX: C34.91 Malignant neoplasm of unspecified part of right bronchus or lung (principal); Z45.2 Encounter for adjustment and management of vascular access device
CPT/HCPCS: 36591; 80053; 85025

== ENCOUNTER 2024-12-23 01:29 | Outpatient (CLI) | payer MEDICARE, SELFPAY ==
--- NOTE | 2024-12-23 | DI.CT_ITS ---
Exam(s) CT CHEST W EXAM: CT CHEST W CLINICAL HISTORY: Stage IV non-small cell cancer of rt lung, C34.91, on treatment break. TECHNIQUE: Multi planar reconstructions were performed. CONTRAST MATERIAL: Omnipaque 350; 75 cc COMPARISON: CT CT CHEST PE CTA from 01/20/[address] CHEST W from 09/18/[address] CHEST W from 09/24/2024 FINDINGS: CHEST: LUNGS: The previously described benign-appearing increased markings in the medial aspect of the super ior segment of the right lower lobe appear unchanged. Slightly increased markings in the lateral asp ect of the right upper lobe with benign appearance are also unchanged. There is a focal area of pleu ral thickening posteriorly in the right upper lobe measuring 1.4 cm wide by 0.4 cm thick, unchanged f rom prior CT scans dating back to September 2023. There are no new significant right lung findings. There are no new significant focal left lung findings. There are no pleural effusions. No new findi ngs in the trachea and mainstem bronchi. MEDIASTINUM: There is no hilar nor mediastinal adenopathy. Distal tip of the Port-A-Cath is in satisf actory position in the lower SVC CARDIAC: Heart size upper normal. No pericardial effusion.Diameter of the ascending thoracic aorta i s enlarged measuring 4 cm AP, unchanged. There is no evidence of aortic dissection. Descending thor acic aorta exhibits normal diameter. VISUALIZED UPPER ABDOMEN:Left hepatic lobe cyst is unchanged. Right adrenal gland unremarkable. The re is a 1.5 cm nodule in the left adrenal gland which isd unchanged in size 1.5 x 1.5 cm nodule in th e left adrenal gland noted which is unchanged from CT scan of September [address] scan of January 2023 . Therefore most probably a benign adenoma. OSSEOUS: Scoliosis again noted.No new significant osseous lesions. No fractures evident. IMPRESSION: 1. Stable benign-appearing right lung findings. No evidence of recurrent lung malignancy nor intrath oracic adenopathy. No new left lung findings. No pleural effusions. 2. Stable benign-appearing left adrenal nodule measuring 1.5 cm, unchanged from [address] probably a benign adenoma. The opposite-right adrenal gland remains unremarkable. 3. Enlarged ascending thoracic aorta with diameter 4 cm. No evidence of aortic dissection nor perica rdial effusion. RADIATION DOSE DELIVERED: 571.5mGy.cm Total DLP DATA REPOSITORY: All CT scans at this facility are submitted to the National Radiology Data Registry (NRDR) Dose Index Registry (DIR) with the [employer] (ACR). RADIATION OPTIMIZATION: All CT scans at this facility use at least one of these dose optimization te chniques: automated exposure control; mA and/or kV adjustment per patient size (includes targeted exa ms where dose is matched to clinical indication); or iterative reconstruction.
[2024-12-23] MEDS: Omnipaque 350 MG/ML 100 ML BTL IJ (10:28)
[2024-12-23] MEDS: Normal Saline - Diluent 50 ML VIAL IJ (10:29)
== END 2024-12-23 01:49 ==
LOC: DI 01:30
PROVIDERS: PCP Nurse Practitioner Family; Visit Provider Nurse Practitioner Family
DX: C34.91 Malignant neoplasm of unspecified part of right bronchus or lung (principal)
CPT/HCPCS: 36591; 80053; 71260; 83735; 84439; 84443; 85025; J3490

== ENCOUNTER 2024-12-23 02:27 | Outpatient (RCR) | payer MEDICARE, SELFPAY ==
[2024-12-23] MEDS: Normal Saline Flush 10 ML SYR IVP (09:22)
[2024-12-23 09:52] LABS: Abs Immature Grans 0.03 10^3/uL (0.0-0.06); Absolute Basophil Count 0.04 10^3/uL (0.0-0.2); Absolute Lymphocyte Count 1.22 10^3/uL (1.2-3.4); Absolute Neutrophil Count 5.14 10^3/uL (1.2-6.7); Basophils % 0.6 %; Eosinophils % 1.4 %; HCT 44.9 % (40.0-50.0); Immature Grans % 0.4 %; Lymphocytes % 17.4 %; MCH 31.3 pg (27.0-33.0); MCHC 33.4 % (32.0-36.0); MCV 94 fL (80-95); MPV 9.7 fL (8.0-11.0); Monocytes % 7.1 %; Neutrophils % 73.1 %; Platelet Count 181 10^3/uL (130-400); RBC 4.79 10^6/uL (4.36-5.78); RDW 13.1 % (11.8-14.1); RDW-SD 45.1 fL; WBC 7.03 10^3/uL (4.4-10.8)
[2024-12-23 10:12] LABS: ALT 45 U/L (16-63); AST 37 U/L (15-37); Albumin 3.9 g/dL (3.4-5.0); Alkaline Phosphatase 72 U/L (46-116); Anion Gap 5.6 mmol/L (3-11); BUN 24 mg/dL (7-18); Bilirubin, Total 0.44 mg/dL (0.2-1.0); CO2 30.4 mmol/L (21.0-32.0); CREATININE 1.5 mg/dL (0.70-1.30); Calcium 8.9 mg/dL (8.5-10.1); Chloride 103 mmol/L (98-107); Estimated GFR 49.16 (mL/min/1.73m2); FREE T4 1.05 ng/dL (0.76-1.46); Glucose 119 mg/dL (74-106); Magnesium 2.1 mg/dL (1.8-2.4); Potassium 4.2 mmol/L (3.5-5.1); Sodium 139 mmol/L (136-145); TSH 1.93 uIU/mL (0.36-3.74); Total Protein 7.7 g/dL (6.4-8.2)
== END 2025-01-10 23:59 | disposition home or self-care (01) ==
LOC: INF 02:27
PROVIDERS: PCP Nurse Practitioner Family; Visit Provider Internal Medicine Medical Oncology
DX: C34.91 Malignant neoplasm of unspecified part of right bronchus or lung (principal); Z79.899 Other long term (current) drug therapy
CPT/HCPCS: 36591; 80053; 83735; 84439; 84443; 85025

== ENCOUNTER 2025-03-24 01:53 | Outpatient (CLI) | payer MEDICARE, SELFPAY ==
--- NOTE | 2025-03-24 | DI.CT_ITS ---
Exam(s) CT CHEST W EXAM: CT CHEST W CLINICAL HISTORY: Non-small cell lung ca of rt lung, C34.91; on treatment break, metastatic, TECHNIQUE: Imaging Protocol: Axial computed tomography images with coronal and sagittal reformatted images were created and reviewed. Computer aided detection (CAD) was utilized. CONTRAST MATERIAL: Intravenous: Omnipaque 350Contrast volume:70 mL. COMPARISON: CT CT CHEST W from 12/23/2024 FINDINGS: Tracheobronchial tree: Patent where visualized. No evidence of bronchiectasis. Pulmonary parenchyma: Calcified granuloma are present. There are no new findings seen in the lungs. The pleural thickening posteriorly in the right hemithorax is unchanged. No focal consolidating inf iltrates are present. Mediastinum and Cora: No dominant adenopathy or fluid collection. The esophagus is unremarkable. Pleura: No effusion or pneumothorax. Heart: Mildly enlarged heart. Coronary artery calcification is present. No pericardial effusion. Aorta: Stable size of the ascending thoracic aorta. Atherosclerotic calcification is present. Pulmonary arteries: Due to the timing of the bolus, there is suboptimal opacification of the pulmonar y arteries for evaluation of pulmonary emboli. Upper abdomen: There is a stable hepatic cyst in the left lobe. There is a stable left adrenal nodu le. Lymph nodes: Within normal limits. Bones: Within normal limits for the patient's age. No new osseous lesions are identified. There is a right convex thoracic scoliosis. Tubes, Catheters, and Lines: There is a left sided port in place. Soft tissues: Unremarkable. IMPRESSION: 1. No change in appearance of the lungs compared to the prior examination. No findings to suggest pr ogression of disease. 2. No acute pulmonary process. 3. Stable hepatic cyst and left adrenal nodule. RADIATION DOSE DELIVERED: 524.77mGy.cm Total DLP DATA REPOSITORY: All CT scans at this facility are submitted to the National Radiology Data Registry (NRDR) Dose Index Registry (DIR) with the [employer] (ACR). RADIATION OPTIMIZATION: All CT scans at this facility use at least one of these dose optimization te chniques: automated exposure control; mA and/or kV adjustment per patient size (includes targeted exa ms where dose is matched to clinical indication); or iterative reconstruction.
[2025-03-24] MEDS: Normal Saline - Diluent 50 ML VIAL IJ (09:43)
[2025-03-24] MEDS: Omnipaque 350 MG/ML 500 ML BTL-Imaging package 70 ML IJ (09:44)
== END 2025-03-24 02:13 ==
LOC: DI 01:53
PROVIDERS: PCP Nurse Practitioner Family; Visit Provider Nurse Practitioner Family
DX: C34.91 Malignant neoplasm of unspecified part of right bronchus or lung (principal)
CPT/HCPCS: 36591; 80053; 71260; 83735; 84439; 84443; 85025

== ENCOUNTER 2025-03-24 03:30 | Outpatient (RCR) | payer MEDICARE, SELFPAY ==
[2025-03-24] MEDS: Normal Saline Flush 10 ML SYR IVP ×3 (08:27→10:04)
[2025-03-24 08:43] LABS: Abs Immature Grans 0.03 10^3/uL (0.0-0.06); Absolute Basophil Count 0.05 10^3/uL (0.0-0.2); Absolute Eosinophil Count 0.12 10^3/uL (0.0-0.7); Absolute Monocyte Count 0.45 10^3/uL (0.1-0.8); Absolute Neutrophil Count 4.73 10^3/uL (1.2-6.7); Basophils % 0.8 %; Eosinophils % 1.8 %; HCT 44.9 % (40.0-50.0); Immature Grans % 0.5 %; Lymphocytes % 18.2 %; MCH 31.1 pg (27.0-33.0); MCHC 33.4 % (32.0-36.0); MCV 93 fL (80-95); Monocytes % 6.8 %; Neutrophils % 71.9 %; RBC 4.83 10^6/uL (4.36-5.78); RDW-SD 44.4 fL; WBC 6.58 10^3/uL (4.4-10.8)
[2025-03-24 08:55] LABS: Diff Comment PLT Morph Reviewed; RBC Morphology Normal
[2025-03-24 09:04] LABS: ALT 38 U/L (16-63); AST 29 U/L (15-37); Albumin 3.8 g/dL (3.4-5.0); Alkaline Phosphatase 79 U/L (46-116); Anion Gap 3.8 mmol/L (3-11); BUN 22 mg/dL (7-18); Bilirubin, Total 0.4 mg/dL (0.2-1.0); CO2 29.2 mmol/L (21.0-32.0); CREATININE 1.5 mg/dL (0.70-1.30); Calcium 8.6 mg/dL (8.5-10.1); Chloride 103 mmol/L (98-107); Estimated GFR 49.16 (mL/min/1.73m2); FREE T4 1.04 ng/dL (0.76-1.46); Glucose 147 mg/dL (74-106); Magnesium 2.2 mg/dL (1.8-2.4); Sodium 136 mmol/L (136-145); TSH 2.97 uIU/mL (0.36-3.74); Total Protein 7.4 g/dL (6.4-8.2)
== END 2025-04-12 23:59 | disposition home or self-care (01) ==
LOC: INF 03:30
PROVIDERS: Nurse Practitioner Family; PCP Nurse Practitioner Family; Visit Provider Internal Medicine Medical Oncology
DX: C34.91 Malignant neoplasm of unspecified part of right bronchus or lung (principal); Z79.899 Other long term (current) drug therapy
CPT/HCPCS: 36591; 80053; 83735; 84439; 84443; 85025

== ENCOUNTER 2025-07-15 06:17 | Outpatient (RCR) | payer MEDICARE, SELFPAY ==
[2025-07-15] MEDS: Normal Saline Flush 10 ML SYR IVP (08:49)
[2025-07-15 08:51] LABS: Abs Immature Grans 0.03 10^3/uL (0.0-0.06); HCT 43.9 % (40.0-50.0); HGB 14.6 g/dL (13.5-17.5); Immature Grans % 0.4 %; MCH 31.3 pg (27.0-33.0); MCHC 33.3 % (32.0-36.0); MCV 94 fL (80-95); MPV 9.3 fL (8.0-11.0); Platelet Count 165 10^3/uL (130-400); RBC 4.67 10^6/uL (4.36-5.78); RDW 13.6 % (11.8-14.1); RDW-SD 46.7 fL; WBC 7.13 10^3/uL (4.4-10.8)
[2025-07-15 09:29] LABS: ALT 60 U/L (16-63); AST 43 U/L (15-37); Albumin 3.9 g/dL (3.4-5.0); Alkaline Phosphatase 71 U/L (46-116); Anion Gap 6.8 mmol/L (3-11); BUN 23 mg/dL (7-18); Bilirubin, Total 0.5 mg/dL (0.2-1.0); CO2 29.2 mmol/L (21.0-32.0); Calcium 8.5 mg/dL (8.5-10.1); Chloride 103 mmol/L (98-107); Glucose 141 mg/dL (74-106); Magnesium 2.3 mg/dL (1.8-2.4); Potassium 3.9 mmol/L (3.5-5.1); Sodium 139 mmol/L (136-145); TSH 2.88 uIU/mL (0.36-3.74); Total Protein 7.3 g/dL (6.4-8.2)
== END 2025-08-12 23:59 | disposition home or self-care (01) ==
LOC: INF 06:17
PROVIDERS: Nurse Practitioner Family; PCP Nurse Practitioner Family; Visit Provider Internal Medicine Medical Oncology
DX: C34.91 Malignant neoplasm of unspecified part of right bronchus or lung (principal); Z79.899 Other long term (current) drug therapy; Z45.2 Encounter for adjustment and management of vascular access device
CPT/HCPCS: 36591; 80053; 83735; 84439; 84443; 85025

== ENCOUNTER 2025-07-15 10:03 | Outpatient (CLI) | payer MEDICARE, SELFPAY ==
--- NOTE | 2025-07-15 | DI.CT_ITS ---
Exam(s) CT CHEST W EXAM: CT CHEST W CLINICAL HISTORY: NON SMALL RT LUNG CA,C34.91,MALIGNANT PLEURAL EFFUSION,J91.0,S/P TREATMENT TECHNIQUE: Imaging Protocol: Axial computed tomography images with coronal and sagittal reformatted images were created and reviewed. Computer aided detection (CAD) was utilized. CONTRAST MATERIAL: Intravenous: Omnipaque 350 Contrast volume:70 ml. COMPARISON: CT CT CHEST W from 09/18/[address] CHEST W from 03/24/2025 FINDINGS: Pulmonary parenchyma: Stable area of scarring in the superior segment of the right lower lobe medially. No consolidation. No dominant measurable mass. Scattered calcified granulomas. Minimal emphysematous changes. Tracheobronchial tree: No bronchiectasis or mucous plugging. Mediastinum and Cora: No dominant adenopathy or fluid collection. Pleura: No effusion. No pneumothorax. Stable small area of thickening posteriorly at the right upper lobe. Heart: The heart is not dilated. Mild coronary artery calcifications are seen. Aorta: Ascending aorta measures 4.3 cm unchanged from prior. Mild atherosclerotic changes. Pulmonary arteries: No gross evidence of emboli. Upper abdomen: No acute findings. Streak artifact related arm positioning. Stable fat attic cysts. Stable small left adrenal nodule. Bones: Scoliosis and severe degenerative changes in the spine. Soft tissues: Unremarkable left-sided port again noted. IMPRESSION: Stable findings in the chest. No evidence of recurrent disease. RADIATION DOSE DELIVERED: 569.28mGy.cm Total DLP DATA REPOSITORY: All CT scans at this facility are submitted to the National Radiology Data Registry (NRDR) Dose Index Registry (DIR) with the [employer] (ACR). RADIATION OPTIMIZATION: All CT scans at this facility use at least one of these dose optimization techniques: automated exposure control; mA and/or kV adjustment per patient size (includes targeted exams where dose is matched to clinical indication); or iterative reconstruction.
[2025-07-15] MEDS: Omnipaque 350 MG/ML 500 ML BTL-Imaging package IJ (09:45)
[2025-07-15] MEDS: Normal Saline - Diluent 50 ML VIAL IJ (09:46)
== END 2025-07-15 10:23 ==
PROVIDERS: PCP Nurse Practitioner Family; Visit Provider Nurse Practitioner Family
DX: C34.91 Malignant neoplasm of unspecified part of right bronchus or lung (principal); J91.0 Malignant pleural effusion
CPT/HCPCS: 36591; 80053; 71260; 83735; 84439; 84443; 85025

== ENCOUNTER 2025-07-28 16:49 | Outpatient (CLI) | payer MEDICARE, SELFPAY ==
--- NOTE | 2025-07-28 11:14 | DI.RAD_ITS ---
Exam(s) XR LUMBAR SPINE COMPLETE EXAM: XR LUMBAR SPINE COMPLETE CLINICAL HISTORY: Pain, Mechanical low back Pain, M54.59, M96.1 Post Laminectomy syndrome Low. TECHNIQUE: 2D digital imaging was performed of the lumbar spine. Five images were obtained. AP, lateral, right oblique, left oblique and L5-S1 spot views were obtained. COMPARISON: CT CT CHEST/ABD/PEL W from 06/13/2023 FINDINGS: BONES: No fracture or destructive lesion. Endplate osteophytes are seen at multiple levels of the lumbar spine. Facet arthropathy is seen at multiple levels of the lumbar spine. There are posterior is surgical changes at L5-S1. DISKS: There is disc space narrowing at multiple levels of the lumbar spine particularly at L1-L2, L2-L3 and L5-S1. There is a vacuum disc at L3-L4. ALIGNMENT: There is a left convex lumbar scoliosis. Grade 1 anterolisthesis of L5 on S1 is noted. No spondylolysis or spondylolisthesis. SOFT TISSUE: Normal. IMPRESSION: 1. Marked degenerative changes seen in the lumbar spine. 2. Grade 1 anterolisthesis of L5 on S1 and posterior spinal surgery at L5-S1. DATA REPOSITORY: RADIATION DOSE DELIVERED:
== END 2025-07-28 17:09 ==
LOC: DI 16:52
PROVIDERS: PCP Nurse Practitioner Family; Visit Provider Anesthesiology Pain Medicine
DX: M54.59 Other low back pain (principal); M96.1 Postlaminectomy syndrome, not elsewhere classified
CPT/HCPCS: 72110

== ENCOUNTER 2025-08-08 03:48 | Outpatient (CLI) | payer MEDICARE, SELFPAY ==
--- NOTE | 2025-08-08 05:30 | DI.CT_ITS ---
Exam(s) CT LUMBAR SPINE WO EXAM: CT LUMBAR SPINE WO CLINICAL HISTORY: Pain and right lower extremity weakness,post laminectomy syndrome,mechanica. TECHNIQUE: Imaging Protocol: Axial computed tomography images with coronal and sagittal reformatted images were created and reviewed COMPARISON: CR XR LUMBAR SPINE COMPLETE from 07/28/2025 FINDINGS: Bones: The last intervertebral disc space is designated the L5/S1 level for the numbering purpose of this examination. There are prominent endplate osteophytes throughout. There is a moderate levoscoliosis centered at L3. There are severe degenerative disc changes from L2-3 through L5-S1. There is mild loss of vertebral height at L2 and L3, greater on the right side at L3. Fusion hardware is noted posteriorly at L5-S1. T12-L1: Endplate osteophytes projecting toward the left. Minimal disc bulging. L1-2: Severe loss of disc height and vacuum phenomenon. Endplate osteophytes eccentric toward the left. No significant central canal stenosis. Severe left neural foraminal narrowing. L2-3: Severe loss of disc height, eccentric toward the right.. Severe endplate sclerosis and endplate osteophytes. Degenerative cystic changes in the endplates. Prominent facet degenerative changes. Severe bilateral neural foraminal narrowing, greater on the right. Mild central canal stenosis. L3-4: Severe loss of disc height, eccentric toward the right. Sclerosis in the vertebral endplates. Mild degenerative cystic changes in the endplates. Prominent facet degenerative changes. Severe bilateral neural foraminal narrowing, greater on the right. Slight spondylolisthesis. Mild central canal stenosis. L4-5: Mild loss of disc height. Postsurgical changes with laminectomy at this level. No significant neural foraminal narrowing or central canal stenosis. L5-S1: Posterior fusion hardware creates artifact. Mild spondylolisthesis. Endplate osteophytes and facet degenerative changes combine to cause severe bilateral neural foraminal narrowing. No significant central canal stenosis. The visualized SI joints and sacrum are well maintained. Soft Tissues: The paraspinal soft tissues are unremarkable. IMPRESSION: Postsurgical changes at L5-S1. Severe degenerative disc changes from L1-2 through L3-4 with severe scoliosis. Multilevel severe neural foraminal narrowing. Mild central canal stenosis at L2-3 and L3-4. RADIATION DOSE DELIVERED: 1,613.99mGy.cm Total DLP DATA REPOSITORY: All CT scans at this facility are submitted to the National Radiology Data Registry (NRDR) Dose Index Registry (DIR) with the [employer] (A[employer]). RADIATION OPTIMIZATION: All CT scans at this facility use at least one of these dose optimization techniques: automated exposure control; mA and/or kV adjustment per patient size (includes targeted exams where dose is matched to clinical indication); or iterative reconstruction.
== END 2025-08-08 04:08 ==
LOC: DI 03:48
PROVIDERS: PCP Nurse Practitioner Family; Visit Provider Anesthesiology Pain Medicine
DX: M96.1 Postlaminectomy syndrome, not elsewhere classified (principal); M51.370 Other intervertebral disc degeneration, lumbosacral region with discogenic back pain only
CPT/HCPCS: 72131

== ENCOUNTER 2025-08-26 11:54 | Outpatient (CLI) | payer MEDICARE, SELFPAY ==
--- NOTE | 2025-08-26 06:00 | DI.RAD_ITS ---
Exam(s) XR PAIN CLINIC LUMBAR SP 2V EXAM: XR PAIN CLINIC LUMBAR SP 2V CLINICAL HISTORY: Dx: Lumbar Spondylosis. TECHNIQUE: Fluoroscopy was provided for the referring physician for guidance with performing pain clinic injection procedure. COMPARISON: No exams were available for comparison FINDINGS: Please see procedure note for details. Fluoro time: 24.8 seconds RADIATION DOSE DELIVERED: mirna Gauthier=17.5 mGy
[2025-08-26 11:54] VITALS: BP 143/60; PULSE 78; RESP 18; TEMP 36.7; O2SAT 95
--- NOTE | 2025-08-26 12:07 | PDOC.PAIN_ITS ---
Date of service: 08/26/25 Time of Service: 12:41 Pain Managment Procedure Note Procedure Note Procedure Note: Diagnostic Lumbar Facet Joint Injection ? Location: Right Lumbar Facet Joints ? Levels: L2-3, L3-4 ? 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 Post-procedure Diagnosis:? The same as above ? Sedation:? None ? Estimated blood loss:? less than 2 ml ? Surgeon: Davide Monroy MD COMMENT: Pain 10/10 .Decision was made to proceed with intra-articular facet injections for the possibility of not having to do medial branch blocks and radiofrequency ablation if patient get long lasting relief (> 3 months). ? Procedure Detail:? The procedure and potential risks were explained to t he patient and informed written consent was obtained. The patient was escorted to the procedure room and placed in the prone position. Pillows were utilized for proper positioning and comfort.? Time out was performed in the procedure room with nursing staff confirming the patient's identity, procedure to be performed, allergies, and any blood thinning or anti-platelet medications.? Sterile technique was maintained throughout the procedure.? The patient's lumbosacral area was prepped with chlorhexidine and draped in a sterile fashion. Lidocaine 1% was used to anesthetize the skin. An oblique fluoroscopic view was obtained, with visualization of the facet joint.? A 22gauge, Quincke needle was gently advanced through the facet capsule.? Needle placement was confirmed with fluoroscopy in AP, oblique, and lateral views by injecting 0.25ml of contrast.? 20 mg of Depomedrol and 0.5ml of 0.5% bupivacaine was injected into the capsule at L2-3 Right . This was repeat at L3-4 Right ? The patient tolerated the procedure well and was discharged home with instructions. Permanent images saved and recorded. Plan:? Follow up prn COMMENT:Pain went from 10/10 to 0/10. Pain? 100 % better. Will use this as both diagnostic and potentially therapeutic.? With short-term relief from the level that it was not long-lasting then we will proceed with for LMBB #2 and possible radiofrequency ablation. Would use 5 inch needles and procedure repeated. 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
[2025-08-26 12:24] VITALS: PULSE 90; O2SAT 97
[2025-08-26 12:30] VITALS: PULSE 79; O2SAT 96
[2025-08-26] MEDS: Omnipaque 240 MG/ML 50 ML BTL IJ (12:41)
[2025-08-26] MEDS: Bupivacaine 0.5% Pres-Free 10 ML VIAL IJ (12:41)
[2025-08-26] MEDS: methylPREDNISolone ACETATE 80 MG/ML VIAL IJ (12:41)
[2025-08-26] MEDS: Nerve Block Tray 1 EACH MC (12:41)
== END 2025-08-26 11:55 | disposition home or self-care (01) ==
LOC: PC 11:54
PROVIDERS: PCP Nurse Practitioner Family; Visit Provider Anesthesiology Pain Medicine
DX: M54.50 Low back pain, unspecified (principal); M47.817 Spondylosis without myelopathy or radiculopathy, lumbosacral region; M47.816 Spondylosis without myelopathy or radiculopathy, lumbar region
CPT/HCPCS: 64493; 64494; 72100; J0665; J1010; Q9967